=== PATIENT | female | born 1960 | race African-American/Black ===

== ENCOUNTER 2016-04-07 19:40 | Inpatient (IN) ==
[2016-04-07] MEDS ORDERED: 0.9 % Sodium Chloride 1,000 ML IVC SCH (20:15)
[2016-04-07 20:31] LABS: Basophils % 0.1 %; Hematocrit 30.8 % (35.3-44.9); Hemoglobin 10.4 g/dL (11.5-15.4); Immature Granulocytes % 0.6 % (0-4); Lymphocytes # 0.5 K/mcL (0.6-4.6); Lymphocytes % 3.4 %; Mean Corpuscular HGB Conc 33.8 g/dL (31.6-35.5); Mean Corpuscular Hemoglobin 28.9 pg (28.0-33.3); Mean Corpuscular Volume 85.6 fL (83.0-100.0); Mean Platelet Volume 10.1 fL (9.4-12.4); Monocytes # 1.4 K/mcL (0.0-1.3); Monocytes % 8.6 %; Platelet Count 258 K/mcL (140-400); Red Cell Distribution Width 13.3 % (11.5-14.5); Segmented Neutrophils % 87.3 %
[2016-04-07 20:47] LABS: Alanine Aminotransferase 27 Units/L (0-55); Albumin 2.6 g/dL (3.5-5.0); Albumin/Globulin Ratio 0.6 (1.1-2.2); Alkaline Phosphatase 235 Units/L (38-126); Aspartate Amino Transferase 36 Units/L (5-34); BUN/Creatinine Ratio 23 (6-26); Bilirubin,Total 2.6 mg/dL (0.2-1.2); Blood Urea Nitrogen 18 mg/dL (7-20); Calcium 9.6 mg/dL (8.6-10.8); Carbon Dioxide 29 mEq/L (19-29); Chloride 93 mEq/L (98-109); Globulin 4.4 g/dL (2.4-3.5); Glucose 149 mg/dL (70-99); Osmolality,Calculated 279 (280-300); Potassium 3.2 mEq/L (3.5-4.5); Sodium 132 mEq/L (136-145); eGFR For African Americans > 60 (> 60); eGFR For Non-African Americans > 60 (> 60)
[2016-04-07 21:12] LABS: Platelet Estimate Normal (Normal)
[2016-04-07] MEDS ORDERED: Piperacillin/Tazobactam 4.5 GM in D5% in Water (Mini-Bag+) 100 ML IVPB ONE (21:58)
--- NOTE | 2016-04-07 22:53 | Emergency Department Note ---
Disposition Clinical Impression: Altered mental status Qualifiers: Altered mental status type: disorientation Qualified Code(s): R41.0 - Disorientation, unspecified Disposition: Admitted As Inpatient Condition: Good General Adult HPI - General Chief complaint: ED Back Pain/Injury Stated complaint: lower back/left shoulder pain Time Seen by Provider: 04/07/16 19:46 Source: patient, EMS Limitations: no limitations Nursing Notes Reviewed: Yes Vital Signs Reviewed: Yes - History of Present Illness HPI Narrative: 55-year-old female presents with complaints of confusion, she did fall recently on Thursday. Her family says that she is left food on the stove, acting abnormal since Thursday. She is not answer her phone. She was slightly slow to respond on arrival. Her last while was on Thursday. She has no history of diabetes, recent head trauma, anticoagulant use. Pain Scale: 10 - Related Data Home Medications Medication Instructions Recorded Confirmed Pantoprazole Sodium [Protonix] 40 mg PO BID 03/15/15 10/24/15 Tizanidine HCl [Zanaflex] 4 mg PO BID PRN 03/15/15 10/24/15 Alprazolam [Xanax 1 MG Tablet] 1 mg PO BID 09/19/15 10/24/15 Bupropion HCl [Wellbutrin Xl] 300 mg PO DAILY 09/19/15 10/24/15 Carvedilol [Coreg] 25 mg PO BID 09/19/15 10/24/15 Duloxetine HCl [Cymbalta] 30 mg PO DAILY 09/19/15 10/24/15 Meloxicam 15 mg PO DAILY 09/19/15 10/24/15 SUMAtriptan Succinate [Imitrex] 100 mg PO PRN PRN 09/19/15 10/24/15 Amlodipine Besylate 10 mg PO DAILY 10/09/15 10/24/15 Fluticasone Propionate Nasal 1 spray NS DAILY 10/09/15 10/24/15 [Flonase] HYDROcodone/Acet 5/325 mg [[place] 1 tab PO Q6H PRN 10/09/15 10/24/15 5-325 mg] Hydrochlorothiazide 25 mg PO DAILY 10/09/15 10/24/15 Lactulose 15 ml PO BID 10/09/15 10/24/15 Losartan Potassium [Cozaar] 50 mg PO DAILY 10/09/15 10/24/15 Previous Rx's Medication Instructions Recorded Ergocalciferol (VITAMIN D2) 50,000 unit PO QWEEK #12 capsule 03/19/15 [Vitamin D2 (50,000 UNIT)] Cyanocobalamin (B-12) [Vitamin B12] 1,000 mcg PO DAILY #90 tablet 10/25/15 Cholecalciferol (Vitamin D3) 1,000 unit PO DAILY #90 capsule 01/01/16 [Vitamin D] HYDROcodone/Acet 5/325 mg [[place] 1 tab PO Q6HR PRN #10 tablet 04/04/16 5-325 mg] Allergies Allergy/AdvReac Type Severity Reaction Status Date / Time Sulfa (Sulfonamide Allergy Rash Verified 03/15/15 13:45 Antibiotics) All systems ED: reviewed and negative except as stated. Past Medical History - Past Medical History Medical history: Reports: arthritis, GERD, hypertension, other Surgical history: Reports: hysterectomy, orthopedic, other Psychiatric history: Reports: no psych history - Social History Smoking Status: Never smoker Smokeless Tobacco Status: No Alcohol use: Reports: none Drug use: Reports: none Physical Exam Confused but alert to person and place, GCS 15 [place] warm and dry TMs clear bilaterally, extraocular muscle movements are normal, pupils equal and reactive to light Trachea midline Cardiovascular exam is without murmur, rub, gallop Pulmonary exam is good inspiratory effort, no rales, no rhonchi, no wheezing Abdominal exam is soft, nontender, no peritonitis Back is without CVA tenderness Extremities are well perfused, no cyanosis, clubbing, edema When asked to lift her left arm she has right arm drift. reflexes 5/5, sensation normal in all extremities. - General Limitations: no limitations General appearance: alert, in no apparent distress Course Vital Signs Temperature 98.6 F 04/07/16 19:47 Pulse Rate 108 04/07/16 19:47 Respiratory Rate 18 04/07/16 19:47 Blood Pressure 119/71 04/07/16 19:47 O2 Sat by Pulse Oximetry 95 04/07/16 19:47 Temperature 98.6 F 04/07/16 19:47 Pulse Rate 105 04/07/16 21:11 Respiratory Rate 18 04/07/16 21:11 Blood Pressure 132/75 04/07/16 21:11 O2 Sat by Pulse Oximetry 95 04/07/16 21:11 Oxygen Delivery Oxygen Delivery Room Air Medical Decision Making - MDM Narrative Medical decision making narrative: Female patient with confusion. Given the left arm deficit is unclear if this is from trauma versus subacute infarct. She has no objective findings a physical examination Gen. on drift. I do feel like she is investigated for traumatic injuries versus acute CVA versus metabolic versus infectious cause of her confusion. CT imaging shows no acute finding. Urinalysis is pending. Given her leukocytosis as well as tachycardia I would empirically start antibiotics at this time with a source as suspect in the urine given its dehydrated objective appearance. IV fluids will be obtained. I did order advanced angiographic imaging of her brain to rule out acute infarct and to identify early perfusion deficits. Additionally given her fall obtain angiography of her neck to rule out carotid injury. She has no evidence of acute traumatic injuries. Her CT brain is without acute findings. Pancultures are sent. She will be admitted to the hospitalist team. - Medical Records Medical records reviewed: Yes I reviewed the patient's medical records. - Lab Data Lab results reviewed: Yes I reviewed the patient's lab results. Result diagrams: 04/07/16 20:16 04/07/16 20:16 Lab Results 04/07/16 04/07/16 04/07/16 Range/Units 20:16 20:16 20:16 WBC 16.0 H (4.3-11.1) K/mcL RBC 3.60 L (3.82-4.97) M/mcL Hgb 10.4 L (11.5-15.4) g/dL Hct 30.8 L (35.3-44.9) % MCV 85.6 (83.0-100.0) fL MCH 28.9 (28.0-33.3) pg MCHC 33.8 (31.6-35.5) g/dL RDW 13.3 (11.5-14.5) % Plt Count 258 (140-400) K/mcL MPV 10.1 (9.4-12.4) fL Immature Gran % 0.6 (0-4) % Seg Neutrophils % 87.3 % Lymphocytes % 3.4 % Monocytes % 8.6 % Eosinophils % 0.0 % Basophils % 0.1 % Neutrophils # 14.0 H (1.6-8.9) K/mcL Lymphocytes # 0.5 L (0.6-4.6) K/mcL Monocytes # 1.4 H (0.0-1.3) K/mcL Eosinophils # 0.0 (0.0-0.6) K/mcL Basophils # 0.0 (0.0-0.2) K/mcL Platelet Estimate Normal (Normal) Sodium 132 L (136-145) mEq/L Potassium 3.2 L (3.5-4.5) mEq/L Chloride 93 L (98-109) mEq/L Carbon Dioxide 29 (19-29) mEq/L BUN 18 (7-20) mg/dL Creatinine 0.78 (0.57-1.11) mg/dL Est GFR ( Amer) > 60 (> 60) Est GFR (Non-Af Amer) > 60 (> 60) BUN/Creatinine Ratio 23 (6-26) Glucose 149 H (70-99) mg/dL Calculated Osmolality 279 L (280-300) Lactic Acid 1.1 (0.5-2.2) mmol/L Calcium 9.6 (8.6-10.8) mg/dL Total Bilirubin 2.6 H (0.2-1.2) mg/dL AST 36 H (5-34) Units/L ALT 27 (0-55) Units/L Alkaline Phosphatase 235 H (38-126) Units/L Serum Total Protein 7.0 (6.0-8.3) g/dL Albumin 2.6 L (3.5-5.0) g/dL Globulin 4.4 H (2.4-3.5) g/dL Albumin/Globulin Ratio 0.6 L (1.1-2.2) 04/07/16 Range/Units 21:15 WBC (4.3-11.1) K/mcL RBC (3.82-4.97) M/mcL Hgb (11.5-15.4) g/dL Hct (35.3-44.9) % MCV (83.0-100.0) fL MCH (28.0-33.3) pg MCHC (31.6-35.5) g/dL RDW (11.5-14.5) % Plt Count (140-400) K/mcL MPV (9.4-12.4) fL Immature Gran % (0-4) % Seg Neutrophils % % Lymphocytes % % Monocytes % % Eosinophils % % Basophils % % Neutrophils # (1.6-8.9) K/mcL Lymphocytes # (0.6-4.6) K/mcL Monocytes # (0.0-1.3) K/mcL Eosinophils # (0.0-0.6) K/mcL Basophils # (0.0-0.2) K/mcL Platelet Estimate (Normal) Sodium (136-145) mEq/L Potassium (3.5-4.5) mEq/L Chloride (98-109) mEq/L Carbon Dioxide (19-29) mEq/L BUN (7-20) mg/dL Creatinine (0.57-1.11) mg/dL Est GFR ( Amer) (> 60) Est GFR (Non-Af Amer) (> 60) BUN/Creatinine Ratio (6-26) Glucose (70-99) mg/dL Calculated Osmolality (280-300) Lactic Acid 1.1 (0.5-2.2) mmol/L Calcium (8.6-10.8) mg/dL Total Bilirubin (0.2-1.2) mg/dL AST (5-34) Units/L ALT (0-55) Units/L Alkaline Phosphatase (38-126) Units/L Serum Total Protein (6.0-8.3) g/dL Albumin (3.5-5.0) g/dL Globulin (2.4-3.5) g/dL Albumin/Globulin Ratio (1.1-2.2) Critical Care Time Critical Care Time: Yes Attestation: I spent greater than 31 minutes actively resuscitating and providing care to this daily L patient with high potential for life-threatening deterioration suffering from neurologic impairment in the setting of trauma. Critical care time was excluding billable procedures
[2016-04-07 22:59] LABS: Bilirubin,Urine Moderate (Negative); Blood,Urine Trace (Negative); Clarity,Urine Clear (Clear); Color,Urine Orange (Yellow); Glucose,Urine (UA) 250 mg/dL (Normal); Ketones,Urine Trace mg/dL (Negative); Leukocyte Esterase,Urine Small (Negative); Nitrite,Urine Negative (Negative); Protein,Urine 100 mg/dL (Neg-Trace); Specific Gravity,Urine > 1.030 (1.010-1.025); Urobilinogen,Urine Normal (Normal)
[2016-04-07 23:02] LABS: Hyaline Casts,Urine None Seen per lpf (None-Few); Squamous Epithelial Cell,Urine Many per lpf (None-Few)
[2016-04-07 23:06] LABS: Amphetamine Screen,Urine Negative ng/mL (Cutoff=1000); Barbiturate Screen,Urine Negative ng/mL (Cutoff=200); Benzodiazepines Screen,Urine Positive ng/mL (Cutoff=200); Cannabinoid Screen,Urine Negative ng/mL (Cutoff = 50); Cocaine Screen,Urine Negative ng/mL (Cutoff= 300); Opiate Screen,Urine Positive ng/mL (Cutoff=300); Phencyclidine Screen,Urine Negative ng/mL (Cutoff=25)
[2016-04-07 23:14] LABS: Amorphous Sediment,Urine Few (Few); Bacteria,Urine Few per hpf (None-Few); RBC,Urine 0-3 per hpf (0-3)
--- NOTE | 2016-04-08 03:24 | Internal Med History&Physical ---
Date of Encounter: 04/08/16 Time of Encounter: 03:20 Assessment and Plan (1) Acute encephalopathy Current visit: Yes Status: Acute Unclear etiology at this point, currently working up metabolic versus infectious cause Also consider polypharmacy, will discontinue medications that may be sedating Obtain ammonia, TSH, B12, folate levels Urine tox screen was positive for opiates and benzodiazepines, both of which she is prescribed Head CT was negative, however neck CTA did not demonstrate mild narrowing of both internal carotids (2) UTI (urinary tract infection) Current visit: Yes Status: Acute Patient denies ever being diagnosed with UTI in the past This could certainly contribute to her recent confusion We will treat empirically with IV Rocephin Blood and urine cultures has been collected, await sensitivities prior to de- escalation Qualifiers: Qualified Code(s): N39.0 - Urinary tract infection, site not specified (3) Weakness of left upper extremity Current visit: Yes Status: Acute Initial head CT negative, will follow up with MRI Obtain bilateral carotid duplex as above Consult protective services social worker, physical and occupational therapy as patient lives alone (4) Recurrent falls Current visit: Yes Status: Chronic Currently working up metabolic versus infectious cause as above (5) Hypokalemia Current visit: Yes Status: Acute Possibly due to poor oral intake recently Patient was given 40 mEq in the ED Repeat BMP in the a.m. (6) DVT prophylaxis Current visit: Yes Status: Acute Heparin 5000 units BID Internal Medicine - H&P: HPI Chief complaint: confusion, fall Admitted From: Home Plans for Post Hospital Care: Home History of present illness: Ms. Menon is a 55 year old female presents from home after an episode of confusion and possible urinary tract infection. Patient is alone at this point , but did present initially with her brother. Upon reviewing the chart, it was noted that the brother stated patient was acting confused and answering questions inappropriately this past Thursday. Patient claims that she has been off her medications for several days due to "not feeling well" and had generalized pain causing her to stay stationary. She also admits to a history of frequent falls but attributes them to being "clumsy". She notes that 2 weeks ago she did fall backwards while putting her pants onto fast and hit her head on the couch. She denies any syncope, fractures, or osteoporosis, but does report some episodes of dizziness. Patient states she has never been worked up for her falls in the past. She also denies ever having been diagnosed with a urinary tract infection, and early has no complaints of urinary symptoms. She does admit to having a poor appetite, again due to her not wanting to get up and move. She denies any chest pain, shortness of breath , fevers. Past Med Surg Social Fam HX - Past Medical History Medical history: arthritis, GERD, hypertension, other Psychiatric history: anxiety, depression - Past Surgical History Surgical History: hysterectomy, orthopedic, other - Social History Smoking Status: Never smoker Smokeless Tobacco Status: No Alcohol use: none Drug use: none - Family History Mother Living Status: Still Living Hx Family Cancer: Yes (breast cancer) Father Age: 63 Living Status: Hx Family Cardiac Disorders: Yes Internal Medicine - H&P: Meds Pantoprazole Sodium [Protonix] 40 mg PO BID 03/15/15 [History] Tizanidine HCl [Zanaflex] 4 mg PO BID PRN 03/15/15 [History] Alprazolam [Xanax 1 MG Tablet] 1 mg PO BID 09/19/15 [History] Bupropion HCl [Wellbutrin Xl] 300 mg PO DAILY 09/19/15 [History] Carvedilol [Coreg] 25 mg PO BID 09/19/15 [History] Duloxetine HCl [Cymbalta] 30 mg PO DAILY 09/19/15 [History] Meloxicam 15 mg PO DAILY 09/19/15 [History] SUMAtriptan Succinate [Imitrex] 100 mg PO PRN PRN 09/19/15 [History] Amlodipine Besylate 10 mg PO DAILY 10/09/15 [History] Fluticasone Propionate Nasal [Flonase] 1 spray NS DAILY 10/09/15 [History] Hydrochlorothiazide 25 mg PO DAILY 10/09/15 [History] Lactulose 15 ml PO BID 10/09/15 [History] Losartan Potassium [Cozaar] 50 mg PO DAILY 10/09/15 [History] Cyanocobalamin (B-12) [Vitamin B12] 1,000 mcg PO DAILY #90 tablet 10/25/15 [Rx] Cholecalciferol (Vitamin D3) [Vitamin D] 1,000 unit PO DAILY #90 capsule [Rx] HYDROcodone/Acet 5/325 mg [[place] 5-325 mg] 1 tab PO Q6HR PRN #10 tablet [Rx] Allergies Sulfa (Sulfonamide Antibiotics) Allergy (Verified 03/15/15 13:45) Rash All Systems PM: A 10-system review of systems was performed and is negative for pertinent findings except as documented above in the HPI. - Constitutional Constitutional: falls, lethargy, no chills, no fever(s), no night sweats - EENT Eyes: no change in vision, no discharge, no pain, no photophobia Ears: no ear discharge, no ear pain, no tinnitus Nose, mouth and throat: no dysphagia, no nasal discharge, no neck pain, no sore throat - Cardiovascular Cardiovascular ROS IM: lightheadedness, no chest pain, no diaphoresis, no dyspnea, no palpitations, no syncope - Respiratory Respiratory: no cough, no dyspnea, no wheezing, no excessive phlegm production - Gastrointestinal Gastrointestinal: no abdominal pain, no diarrhea, no hematemesis, no hematochezia, no melena, no nausea, no vomiting - Genitourinary Genitourinary: no change in urinary stream, no dysuria, no flank pain, no hematuria - Musculoskeletal Musculoskeletal ROS IM: back pain, no numbness, no tingling - Integumentary Integumentary IM: no rash, no unusual bruising - Neurological Neurological ROS: confusion, frequent falls, no convulsions, no focal weakness, no numbness, no tingling, no tremor(s) - Hematologic/Lymphatic Hematologic/Lymphatic: no easy bruising - Constitutional Vitals: Temp Pulse Resp BP Pulse Ox 98.6 F 106 17 109/69 100 04/07/16 23:27 04/07/16 23:27 04/07/16 23:27 04/07/16 23:27 04/07/16 23:27 General appearance: Present: cooperative, pleasant, no acute distress, obese, answers questions appropriately - Head Head exam: Present: atraumatic, normocephalic - Eye Eye exam: Present: PERRL, conjuntiva pink, sclera anicteric - Neck Neck exam general surgery: Present: supple, trachea midline. Absent: lymphadenopathy - Respiratory Respiratory exam: Present: CTAB. Absent: accessory muscle use, rales, rhonchi, wheezes - Cardiovascular Cardiovascular exam: Present: +S1, +S2, tachycardia. Absent: diastolic murmur, gallop, rubs, systolic murmur - GI/Abdominal GI/Abdominal exam: Present: normal bowel sounds, soft, no peritoneal signs. Absent: distended, tenderness - Extremities Exam Extremities exam: Present: tenderness (at the right hip), warm, radial pulses palpable and symetrical. Absent: calf tenderness, cyanotic, pedal edema - Neurological Exam Neurological exam: Present: alert, CN II-XII intact, no focal deficits. Absent : facial droop, speech deficit - Skin Skin exam: Present: dry, intact Internal Med - H&P Results - Labs CBC & Chem 7: 04/07/16 20:16 04/07/16 20:16
[2016-04-08] MEDS ORDERED: Ondansetron ODT 4 MG TAB.RAPDIS SL PRN (03:29)
[2016-04-08] MEDS ORDERED: Naloxone 0.4 MG/ML INJ IVP PRN (03:29)
[2016-04-08] MEDS ORDERED: SUMAtriptan succinate 50 MG TABLET PO PRN (03:34)
[2016-04-08] MEDS ORDERED: tiZANidine 4 MG TABLET PO PRN (03:34)
[2016-04-08] MEDS ORDERED: 0.9 % Sodium Chloride 1,000 ML IVC ONE (03:35)
--- NOTE | 2016-04-08 04:12 | Event Note ---
Date of Encounter: 04/08/16 Time of Encounter: 04:10 Patient seen and examined with medical services assistant. Patient presents with generalized weakness and recurrent falls and confusion. Patient has a UTI is dehydrated. She will be started on ceftriaxone and fluid resuscitation. She is on multiple blood pressure medications and these will be discontinued for now. She is also on [place] benzodiazepine and muscle relaxants and these will be discontinued. There is a slight drift of the left upper extremity and an MRI of the brain will be performed to rule out stroke. Patient is currently alert oriented times 3 during my interview. Physical therapy occupational therapy and clinical social work aide to see the patient. Inpatient admission
[2016-04-08] MEDS: *HR* Heparin 5,000 UNIT/ML VIAL SQ SCH ×2 (05:41→18:42)
[2016-04-08] MEDS: *HR* HYDROcodone/Acet 5/325 mg TABLET PO PRN ×3 (05:42→23:41)
[2016-04-08] MEDS: 0.9 % Sodium Chloride 1,000 ML IVC SCH (06:54)
[2016-04-08 07:02] LABS: Hematocrit 26.9 % (35.3-44.9); Mean Corpuscular HGB Conc 33.5 g/dL (31.6-35.5); Mean Corpuscular Hemoglobin 29.1 pg (28.0-33.3); Mean Corpuscular Volume 87.1 fL (83.0-100.0); Mean Platelet Volume 10.3 fL (9.4-12.4); Platelet Count 228 K/mcL (140-400); Red Blood Count 3.09 M/mcL (3.82-4.97); Red Cell Distribution Width 13.8 % (11.5-14.5)
[2016-04-08 07:19] LABS: BUN/Creatinine Ratio 28 (6-26); Blood Urea Nitrogen 22 mg/dL (7-20); Calcium 8.7 mg/dL (8.6-10.8); Carbon Dioxide 24 mEq/L (19-29); Chloride 100 mEq/L (98-109); Glucose 127 mg/dL (70-99); Magnesium 1.7 mg/dL (1.6-2.6); Osmolality,Calculated 281 (280-300); Phosphorous 2.4 mg/dL (2.3-4.7); Potassium 3.2 mEq/L (3.5-4.5); Sodium 133 mEq/L (136-145); eGFR For African Americans > 60 (> 60); eGFR For Non-African Americans > 60 (> 60)
[2016-04-08 07:51] LABS: Lymphocytes # 1.8 K/mcL (0.6-4.6); Monocytes # 0.6 K/mcL (0.0-1.3); Neutrophils # 12.4 K/mcL (1.6-8.9); Platelet Estimate Normal (Normal)
[2016-04-08 07:54] LABS: Folate 4.7 ng/mL (7.0-31.4)
[2016-04-08 07:56] LABS: Vitamin B12 > 2000 pg/mL (213-816)
[2016-04-08] MEDS ORDERED: amLODIPine 5 MG TABLET PO SCH (09:00)
[2016-04-08] MEDS ORDERED: BuPROPion XL (24 HR) 150 MG TABLET PO SCH (09:00)
[2016-04-08] MEDS ORDERED: ALPRAZolam 1 MG TABLET PO SCH (09:00)
[2016-04-08] MEDS ORDERED: Potassium Chloride Elixir 20 MEQ/15 ML UDC PO ONE (15:41)
--- NOTE | 2016-04-08 15:58 | Event Note ---
Date of Encounter: 04/08/16 Time of Encounter: 15:54 55-year-old female with history of hypertension, anxiety and depression, who lives alone, is admitted with acute confusion and frequent falls. Workup shows leukocytosis, low serum potassium, low serum folate level, urinalysis suggestive of UTI and 2 out of 2 initial blood cultures growing staph aureus. Patient seen and examined. Reports no chest pain, shortness of breath, focal weakness but does report generalized fatigue. Awake, alert and oriented 3. Chest-S1, S2 heard. Lungs are clear to auscultation. Abdomen-soft, nontender, nondistended. WAITER/WAITRESS TOURIST CLASS-cranial nerves intact, no focal deficit Acute encephalopathy-likely related to underlying infection and dehydration. Currently at baseline mental status. Serum TSH and vitamin B12 noted to be normal. Serum folate noted to be low, will start on oral folate supplements. UTI-improving leukocytosis. follow-up urine culture. Continue IV Rocephin. Gram-positive bacteremia-start IV vancomycin and repeat blood cultures in a.m. Uncertain source of infection. Left upper extremity weakness, falls-likely related to generalized weakness due to underlying UTI. CT head and MRI brain reviewed, show no evidence of acute stroke/bleed. Physical and occupational therapy evaluation noted-recommend placement in extended care facility. However, patient is not agreeable at this time and would like to be discharged home with home health services. student financial services counselor on board.
[2016-04-08] MEDS: Folic Acid 1 MG TABLET PO SCH (17:38)
--- NOTE | 2016-04-08 18:33 | Electrocardiograph Report ---
[address] [address] Test Date: 2016-04-08 Pat Name: Christin Menon Department: 114 Room: [facility] Gender: F Speech Pathology Assistant: : 1960 Requested By: Barbara Regan Order Number: [id number] Reading MD: Nallely Santos Measurements Intervals [place] Rate: 101 P: 67 [place]: 151 QRS: 17 QRSD: 86 T: 54 QT: 337 QTc: 395 Interpretive Statements SINUS TACHYCARDIA POSSIBLE LEFT ATRIAL ENLARGEMENT NONSPECIFIC T-WAVE ABNORMALITY ABNORMAL RHYTHM ECG Electronically Signed On 04-08-2016 18:31:30 EST by Nallely Santos
[2016-04-08] MEDS: Vancomycin 1,500 MG in D5% in Water 250 ML IVPB SCH (18:42)
[2016-04-08] MEDS: Sennosides/Docusate Sodium TABLET PO SCH (20:49)
[2016-04-09] MEDS: 0.9 % Sodium Chloride 1,000 ML IVC SCH (04:21)
[2016-04-09] MEDS: Vancomycin 1,500 MG in D5% in Water 250 ML IVPB SCH ×2 (05:43→16:45)
[2016-04-09] MEDS: *HR* HYDROcodone/Acet 5/325 mg TABLET PO PRN ×3 (05:45→18:25)
[2016-04-09 06:30] LABS: Hematocrit 28.5 % (35.3-44.9); Hemoglobin 9.3 g/dL (11.5-15.4); Mean Corpuscular HGB Conc 32.6 g/dL (31.6-35.5); Mean Corpuscular Hemoglobin 28.4 pg (28.0-33.3); Mean Corpuscular Volume 87.2 fL (83.0-100.0); Mean Platelet Volume 10.3 fL (9.4-12.4); Platelet Count 239 K/mcL (140-400); Red Blood Count 3.27 M/mcL (3.82-4.97); Red Cell Distribution Width 14.5 % (11.5-14.5)
[2016-04-09 06:43] LABS: BUN/Creatinine Ratio 24 (6-26); Blood Urea Nitrogen 17 mg/dL (7-20); Calcium 8.9 mg/dL (8.6-10.8); Carbon Dioxide 24 mEq/L (19-29); Chloride 98 mEq/L (98-109); Glucose 132 mg/dL (70-99); Osmolality,Calculated 273 (280-300); Potassium 3.5 mEq/L (3.5-4.5); Sodium 130 mEq/L (136-145); eGFR For African Americans > 60 (> 60); eGFR For Non-African Americans > 60 (> 60)
[2016-04-09] MEDS: *HR* Heparin 5,000 UNIT/ML VIAL SQ SCH ×2 (06:51→18:25)
[2016-04-09] MEDS: Folic Acid 1 MG TABLET PO SCH (07:56)
[2016-04-09] MEDS: Sennosides/Docusate Sodium TABLET PO SCH ×2 (07:57→21:03)
[2016-04-09 08:30] LABS: Lymphocytes # 1.3 K/mcL (0.6-4.6); Monocytes # 0.3 K/mcL (0.0-1.3); Neutrophils # 14.7 K/mcL (1.6-8.9)
[2016-04-09 08:31] LABS: Anisocytosis 1+ (Not Present); Macrocytosis Present (Not Present); Platelet Estimate Normal (Normal)
--- NOTE | 2016-04-09 15:38 | Internal Med Progress Note ---
Date of Encounter: 04/09/16 Time of Encounter: 15:36 - Assessment and plan (1) Acute encephalopathy Current Visit: Yes Status: Acute Assessment and plan: resolved. Currently at baseline mental status. Likely related to underlying dehydration, poor oral intake, depression and use of multiple narcotics/ sedatives/antidepressants. PT/OT evaluation noted, recommend placement in ECF, to which patient is currently agreeable. fitness services manager om board, working on the same. (2) UTI (urinary tract infection) Current Visit: Yes Status: Acute Assessment and plan: Urine culture grows no significant bacteria; continue IV Rocephin to complete a 3-day course; Blood cultures 2/2 grow Staph-like GPC; continue IV Vancomycin and f/up final and repeat cultures; unknown source of bacteremia at this time, wonder if this is contamination; patient does not appear toxic/septic. Qualifiers: Urinary tract infection type: site unspecified Hematuria presence: without hematuria Qualified Code(s): N39.0 - Urinary tract infection, site not specified (3) Weakness of left upper extremity Current Visit: Yes Status: Resolved Assessment and plan: Nonspecific complaint at presentation; MRI brain showed no e/o- acute stroke/ bleed. Carotid Doppler preliminary report shows 60-79% stenosis in left proximal ICA; needs outpatient vascular surgery f/up; (4) Essential hypertension Current Visit: Yes Status: Chronic (5) Anxiety Current Visit: Yes Status: Chronic Assessment and plan: resume home dose of benzodiazepines; (6) Depression Current Visit: Yes Status: Chronic Qualifiers: Depression Type: unspecified Qualified Code(s): F32.9 - Major depressive disorder, single episode, unspecified (7) Recurrent falls Current Visit: Yes Status: Chronic (8) Anemia Current Visit: Yes Status: Chronic Qualifiers: Anemia type: B12 deficiency Vitamin B12 deficiency anemia type: intrinsic factor deficiency Qualified Code(s): D51.0 - Vitamin B12 deficiency anemia due to intrinsic factor deficiency (9) B12 deficiency Current Visit: Yes Status: Chronic Assessment and plan: Serum Vit B12 level noted to be high; hold monthly B12 injection; serum folate noted to be low and started on PO Folate supplements; (10) Iron deficiency Current Visit: Yes Status: Chronic (11) Vitamin D deficiency Current Visit: Yes Status: Chronic Assessment and plan: continue Vitamin D PO supplements; - Subjective Interval history: Reports back pain, anxiety and depression; has poor appetite due to these; no chest pain, dyspnea, palpitations, diarrhea. - Constitutional Vitals: Temp Pulse Resp BP Pulse Ox 98.8 F 108 16 116/67 95 04/09/16 06:43 04/09/16 12:06 04/09/16 06:43 04/09/16 12:06 04/09/16 06:43 General appearance: Present: mild distress, A&O X 3, obese, answers questions appropriately - Respiratory Respiratory exam: Present: CTAB. Absent: accessory muscle use, rales, rhonchi, wheezes - Cardiovascular Cardiovascular exam: Present: RRR, +S1, +S2. Absent: diastolic murmur, gallop, rubs, systolic murmur - GI/Abdominal GI/Abdominal exam: Present: normal bowel sounds, soft (Obese, nontender), no peritoneal signs. Absent: distended, tenderness Internal Medicine: Result - Labs CBC & Chem 7: 04/09/16 06:21 04/09/16 06:21 Labs: Short CBC 04/09/16 Range/Units 06:21 WBC 16.3 H (4.3-11.1) K/mcL Hgb 9.3 L (11.5-15.4) g/dL Hct 28.5 L (35.3-44.9) % Plt Count 239 (140-400) K/mcL Neutrophils # 14.7 H (1.6-8.9) K/mcL BMP 04/09/16 06:21 Sodium 130 L Potassium 3.5 Chloride 98 Carbon Dioxide 24 BUN 17 Creatinine 0.71 Glucose 132 H Calcium 8.9 Consult Discharge Plan - Plan Referrals: Marie Patel MD [Partnered Physician] - 04/15/16 10:00 am Swapnil Philippe DO [Primary Care Provider] - 07/07/16 2:00 pm Isidro Fairbanks DO [Partnered Physician] - 04/14/16 10:20 am Nancy Frank MD [Partnered Physician] - 04/10/16 10:15 am [facility] [Non-Partnered Physician] -
[2016-04-09 16:15] LABS: Acinetobacter baumannii by PCR Not Detected (Not Detect); Candida albicans by PCR Not Detected (Not Detect); Candida glabrata by PCR Not Detected (Not Detect); Candida krusei by PCR Not Detected (Not Detect); Candida parapsilosis by PCR Not Detected (Not Detect); Candida tropicalis by PCR Not Detected (Not Detect); Enterococcus by PCR Not Detected (Not Detect); Escherichia coli by PCR Not Detected (Not Detect); Klebsiella oxytoca by PCR Not Detected (Not Detect); Klebsiella pneumoniae by PCR Not Detected (Not Detect); Pseudomonas aeruginosa by PCR Not Detected (Not Detect); Serratia marcescens by PCR Not Detected (Not Detect); Staphylococcus aureus by PCR ***DETECTED*** (Not Detect); Streptococcus agalactiae(B)PCR Not Detected (Not Detect); Streptococcus by PCR Not Detected (Not Detect); Streptococcus pneumoniae PCR Not Detected (Not Detect); Streptococcus pyogenes (A) PCR Not Detected (Not Detect); blaKPC Carbapenem-Resist Gene Not Detected (Not Detect); mecA Methicillin-Resist Gene Not Detected (Not Detect); vanA/B Vancomycin-Resist Genes Not Detected (Not Detect)
[2016-04-09] MEDS ORDERED: *HR* Morphine 2 MG/ML SYRINGE IVP PRN (18:46)
--- NOTE | 2016-04-09 18:59 | Carotid Imaging Report ---
Carotid Duplex Patient Name:Christin Menon Order Number:[id number] Procedure Date:04/08/2016 Date:1960ge:55 yrs Gender:Female Rt.BP:117 / 70 mmHgHeart Rate: Location:[facility] Room #: 3CA34 Canvas Cutter:Mitzy Bhat RDCS Referring MD:Justo Venegas DO global position system technician:Swapnil Philippe DO Reading MD:Ulises Silvestre MD Primary Indications:Confusion, falls, stenosis on CT Risk Factors Yes/No Hypertension Yes Impressions: The right carotid artery has minimal plaque throughout. The left internal carotid artery has a 60-79% stenosis. Recommendations: Risk factor reduction. Further evaluation recommended if clinically indicated. Follow-up carotid duplex in 6 months. Test completed on 04/08/2016 at 7:58:00 pm. Findings Carotid Duplex: Right: The right proximal common carotid artery has a PSV of 167 cm/s and a EDV of 28 cm/s. The right mid common carotid artery has a PSV of 162 cm/s and a EDV of 21 cm/s. The right distal common carotid artery has a PSV of 144 cm/s and a EDV of 23 cm/s. There is nonstenotic plaque in the right bifurcation with a PSV of 126 cm/s and a EDV of 25 cm/s. There is irregular heterogeneous plaque. There is nonstenotic plaque in the right proximal internal carotid artery with a PSV of 117 cm/s and a EDV of 22 cm/s. There is irregular heterogeneous plaque. The right mid internal carotid artery has a PSV of 90 cm/s and a EDV of 32 cm/s. The right distal internal carotid artery has a PSV of 86 cm/s and a EDV of 30 cm/s. The right eca has a PSV of 190 cm/s and a EDV of 13 cm/s. The right vertebral artery has a PSV of 95 cm/s and a EDV of 26 cm/s. There is antegrade spectral Doppler flow patterns. The right vertebral artery was not well visualized. Left: The left proximal common carotid artery has a PSV of 154 cm/s and a EDV of 30 cm/s. The left mid common carotid artery has a PSV of 187 cm/s and a EDV of 37 cm/s. The left distal common carotid artery has a PSV of 145 cm/s and a EDV of 33 cm/s. There is nonstenotic plaque in the left bifurcation with a PSV of 114 cm/s and a EDV of 17 cm/s. There is irregular heterogeneous plaque. There is 60-79% stenosis in the left proximal internal carotid artery with a PSV of 200 cm/s and a EDV of 36 cm/s. There is irregular homogeneous plaque. The left mid internal carotid artery has a PSV of 115 cm/s and a EDV of 30 cm/s. The left distal internal carotid artery has a PSV of 115 cm/s and a EDV of 47 cm/s. The left eca has a PSV of 173 cm/s and a EDV of 15 cm/s. The left vertebral artery has a PSV of 67 cm/s and a EDV of 27 cm/s. There is antegrade spectral Doppler flow patterns. Prior Study: No prior study available for comparison. Carotid Results Right PSV EDV Assessment Proximal CCA 167 28 Mid CCA 162 21 Distal CCA 144 23 Bifurcation 126 25 Non Stenotic Plaque Proximal ICA 117 22 Non Stenotic Plaque Mid ICA 90 32 Distal ICA 86 30 ECA 190 13 Vertebral Artery 95 26 Not Well Visualized Left PSV EDV Assessment Proximal CCA 154 30 Mid CCA 187 37 Distal CCA 145 33 Bifurcation 114 17 Non Stenotic Plaque Proximal ICA 200 36 60-79% stenosis Mid ICA 115 30 Distal ICA 115 47 ECA 173 15 Vertebral Artery 67 27 Antegrade Flow Ratio's Right ICA/CCA Ratio: 0.72 ICA/CCA Values: 117/162 Left ICA/CCA Ratio: 1.07 ICA/CCA Values: 200/187 Updated by Ulises Silvestre MD on 04/09/2016 6:53:35 PM electronically signed on 04/09/2016 6:53:57 PM with status of Final
[2016-04-09] MEDS: ALPRAZolam 1 MG TABLET PO PRN (21:04)
[2016-04-09] MEDS: Acetaminophen 325 MG TABLET PO PRN (21:04)
[2016-04-10] MEDS: *HR* HYDROcodone/Acet 5/325 mg TABLET PO PRN ×4 (01:43→20:28)
[2016-04-10 04:40] LABS: Basophils % 0.2 %; Eosinophils % 0.2 %; Hemoglobin 9.5 g/dL (11.5-15.4); Immature Granulocytes % 2.9 % (0-4); Lymphocytes # 1.2 K/mcL (0.6-4.6); Lymphocytes % 6.4 %; Mean Corpuscular HGB Conc 32.8 g/dL (31.6-35.5); Mean Corpuscular Volume 85.5 fL (83.0-100.0); Mean Platelet Volume 10.4 fL (9.4-12.4); Monocytes # 1.7 K/mcL (0.0-1.3); Monocytes % 9.5 %; Neutrophils # 14.6 K/mcL (1.6-8.9); Platelet Count 291 K/mcL (140-400); Red Blood Count 3.39 M/mcL (3.82-4.97); Red Cell Distribution Width 14.4 % (11.5-14.5); Segmented Neutrophils % 80.8 %
[2016-04-10 05:02] LABS: Vancomycin,Trough 10.2 mcg/mL (10-20)
[2016-04-10] MEDS: Vancomycin 1,500 MG in D5% in Water 250 ML IVPB SCH (05:07)
[2016-04-10] MEDS: *HR* Heparin 5,000 UNIT/ML VIAL SQ SCH ×2 (06:06→20:27)
[2016-04-10] MEDS: Acetaminophen 325 MG TABLET PO PRN (06:06)
[2016-04-10] MEDS ORDERED: Aminoglycoside Consult 1 EACH MC ONE (08:54)
[2016-04-10] MEDS: Sennosides/Docusate Sodium TABLET PO SCH ×2 (08:55→20:27)
[2016-04-10] MEDS: Cyanocobalamin (B-12) 1,000 MCG TABLET PO SCH (08:56)
[2016-04-10] MEDS: Folic Acid 1 MG TABLET PO SCH (08:56)
[2016-04-10] MEDS: Cholecalciferol (D-3) 1,000 UNIT TABLET PO SCH (08:57)
[2016-04-10] MEDS: Fluticasone Propionate Nasal 50 MCG/SPRAY BOTTLE NS SCH (08:57)
[2016-04-10 10:56] LABS: Enterococcus by PCR Not Detected (Not Detect); mecA Methicillin-Resist Gene Not Detected (Not Detect)
[2016-04-10 10:57] LABS: Acinetobacter baumannii by PCR Not Detected (Not Detect); Candida albicans by PCR Not Detected (Not Detect); Candida glabrata by PCR Not Detected (Not Detect); Candida krusei by PCR Not Detected (Not Detect); Candida parapsilosis by PCR Not Detected (Not Detect); Candida tropicalis by PCR Not Detected (Not Detect); Escherichia coli by PCR Not Detected (Not Detect); Klebsiella oxytoca by PCR Not Detected (Not Detect); Klebsiella pneumoniae by PCR Not Detected (Not Detect); Pseudomonas aeruginosa by PCR Not Detected (Not Detect); Serratia marcescens by PCR Not Detected (Not Detect); Staphylococcus aureus by PCR ***DETECTED*** (Not Detect); Streptococcus agalactiae(B)PCR Not Detected (Not Detect); Streptococcus by PCR Not Detected (Not Detect); Streptococcus pneumoniae PCR Not Detected (Not Detect); Streptococcus pyogenes (A) PCR Not Detected (Not Detect)
[2016-04-10] MEDS: ceFAZolin 2,000 MG in D5% in Water 100 ML IVPB SCH ×2 (12:43→21:44)
--- NOTE | 2016-04-10 15:55 | Internal Med Progress Note ---
Date of Encounter: 04/10/16 Time of Encounter: 15:52 - Assessment and plan (1) Pneumonia Current Visit: Yes Status: Acute Assessment and plan: CT abdomen shows incidental finding of right lower lobe pneumonia. Given patient's worsening leukocytosis and clinical status, we will start IV Levaquin. Noted to require 2-3 L/m supplemental oxygen via nasal cannula. Monitor vital signs closely. Serum lactic acid noted to be within normal limits. Qualifiers: Pneumonia type: due to unspecified organism Laterality: right Lung location: lower lobe of lung Qualified Code(s): J18.1 - Lobar pneumonia, unspecified organism (2) Discitis of lumbar region Current Visit: Yes Status: Acute Assessment and plan: Patient continues to have worsening leukocytosis, persistent bacteremia and acute on chronic severe low back pain. CT abdomen/pelvis is suggestive of possible discitis along with prevertebral/retroperitoneal mass with foci of age at the level of L2-3. This is probably the source of patient's bacteremia. Continue IV antibiotics for MSSA bacteremia along with IV Levaquin. Case discussed with spine surgery Dr. Woo, will follow-up for the consult. Recommend to obtain baseline ESR, CRP along with MRI lumbar spine. Further management to be determined after the imaging studies. Patient is at high risk for worsening sepsis and septic shock. Continue to monitor closely. Plan of care discussed over the telephone with patient's daughter, Ysabel, who lives in [place]. (3) Gram-positive bacteremia Current Visit: Yes Status: Acute Assessment and plan: Initial blood cultures from 04/07, 2 out of 2 sets grew MSSA and patient's antibiotics have been changed to IV cefazolin. Repeat blood cultures from , 1 out of 2 sets grows staph-like gram-positive cocci. Will check 2-D echocardiogram for endocarditis. Repeat blood cultures tomorrow. (4) Acute encephalopathy Current Visit: Yes Status: Resolved Assessment and plan: Likely related to underlying bacteremia and infection. Mental status noted to be at baseline with intermittent confusion and lethargy. Supportive care. (5) UTI (urinary tract infection) Current Visit: Yes Status: Ruled-out Assessment and plan: Urine culture does not show significant bacterial growth, likely contamination. Will hold IV Rocephin at this time. CT abdomen/pelvis shows right-sided perinephritic stranding, unclear if this is actually pyelonephritis. Continue to monitor clinically. Qualifiers: Urinary tract infection type: site unspecified Hematuria presence: without hematuria Qualified Code(s): N39.0 - Urinary tract infection, site not specified (6) Essential hypertension Current Visit: Yes Status: Chronic (7) Anxiety Current Visit: Yes Status: Chronic (8) Depression Current Visit: Yes Status: Chronic Qualifiers: Depression Type: unspecified Qualified Code(s): F32.9 - Major depressive disorder, single episode, unspecified (9) Recurrent falls Current Visit: Yes Status: Chronic Assessment and plan: Physical therapy evaluation noted, patient is to be transferred to senior care facility for rehabilitation when medically stable. (10) Anemia Current Visit: Yes Status: Chronic Qualifiers: Anemia type: B12 deficiency Vitamin B12 deficiency anemia type: intrinsic factor deficiency Qualified Code(s): D51.0 - Vitamin B12 deficiency anemia due to intrinsic factor deficiency (11) B12 deficiency Current Visit: Yes Status: Chronic (12) Iron deficiency Current Visit: Yes Status: Chronic (13) Vitamin D deficiency Current Visit: Yes Status: Chronic - Subjective Interval history: Does not feel good; reports feeling sick with excruciating low back pain, worse on moving; not really controlled with IV Morphine and Hydrocodone; - Constitutional Vitals: Temp Pulse Resp BP Pulse Ox 97.7 F 95 18 125/80 100 04/10/16 11:39 04/10/16 11:39 04/10/16 11:39 04/10/16 11:39 04/10/16 11:39 General appearance: Present: mild distress, A&O X 3, obese, answers questions appropriately - Respiratory Respiratory exam: Present: decreased breath sounds (at right base), CTAB. Absent: accessory muscle use, rales, rhonchi, wheezes - Cardiovascular Cardiovascular exam: Present: RRR, +S1, +S2, tachycardia. Absent: diastolic murmur, gallop, rubs, systolic murmur - GI/Abdominal GI/Abdominal exam: Present: normal bowel sounds, soft, no peritoneal signs. Absent: distended, tenderness - Extremities Exam Extremities exam: Present: full ROM, warm, radial pulses palpable and symetrical. Absent: calf tenderness, cyanotic, pedal edema - Back Exam Back exam: Present: tenderness (severe midline tenderness in lower lumbar area ) - Neurological Exam Neurological exam: Present: CN II-XII intact, oriented X3, no focal deficits. Absent: pronater drift, facial droop, speech deficit - Skin Skin exam: Present: dry, intact Internal Medicine: Result - Labs CBC & Chem 7: 04/10/16 04:30 04/09/16 06:21 Labs: Short CBC 04/10/16 Range/Units 04:30 WBC 18.1 H (4.3-11.1) K/mcL Hgb 9.5 L (11.5-15.4) g/dL Hct 29.0 L (35.3-44.9) % Plt Count 291 (140-400) K/mcL Neutrophils # 14.6 H (1.6-8.9) K/mcL Consult Discharge Plan - Plan Referrals: Marie Patel MD [Partnered Physician] - 04/15/16 10:00 am Swapnil Philippe DO [Primary Care Provider] - 07/07/16 2:00 pm Isidro Fairbanks DO [Partnered Physician] - 04/14/16 10:20 am Nancy Frank MD [Partnered Physician] - 04/10/16 10:15 am [facility] [Non-Partnered Physician] -
[2016-04-10] MEDS: *HR* Morphine 2 MG/ML SYRINGE IVP PRN ×2 (18:17→22:05)
[2016-04-10] MEDS: 0.9 % Sodium Chloride 1,000 ML IVC SCH (20:28)
[2016-04-10] MEDS: Levofloxacin 750 MG/150 ML 750 MG/150 ML BAG IVPB SCH (22:16)
[2016-04-11] MEDS: ALPRAZolam 1 MG TABLET PO PRN (04:03)
[2016-04-11] MEDS: 0.9 % Sodium Chloride 1,000 ML IVC SCH ×2 (04:03→12:11)
[2016-04-11] MEDS: ceFAZolin 2,000 MG in D5% in Water 100 ML IVPB SCH ×2 (04:04→12:10)
[2016-04-11 06:48] LABS: Hematocrit 27.4 % (35.3-44.9); Hemoglobin 9.3 g/dL (11.5-15.4); Mean Corpuscular HGB Conc 33.9 g/dL (31.6-35.5); Mean Corpuscular Hemoglobin 28.4 pg (28.0-33.3); Mean Corpuscular Volume 83.5 fL (83.0-100.0); Mean Platelet Volume 10.1 fL (9.4-12.4); Platelet Count 333 K/mcL (140-400); Red Blood Count 3.28 M/mcL (3.82-4.97); Red Cell Distribution Width 14.4 % (11.5-14.5)
[2016-04-11 07:05] LABS: BUN/Creatinine Ratio 16 (6-26); Blood Urea Nitrogen 9 mg/dL (7-20); Calcium 8.5 mg/dL (8.6-10.8); Carbon Dioxide 27 mEq/L (19-29); Chloride 94 mEq/L (98-109); Glucose 109 mg/dL (70-99); Osmolality,Calculated 267 (280-300); Sodium 129 mEq/L (136-145); eGFR For African Americans > 60 (> 60); eGFR For Non-African Americans > 60 (> 60)
[2016-04-11] MEDS: *HR* Morphine 2 MG/ML SYRINGE IVP PRN ×2 (07:50→17:28)
[2016-04-11] MEDS: *HR* Heparin 5,000 UNIT/ML VIAL SQ SCH ×2 (07:56→23:37)
[2016-04-11] MEDS: Sennosides/Docusate Sodium TABLET PO SCH (07:56)
[2016-04-11] MEDS: Levofloxacin 750 MG/150 ML 750 MG/150 ML BAG IVPB SCH (07:57)
[2016-04-11] MEDS: Folic Acid 1 MG TABLET PO SCH (07:57)
[2016-04-11] MEDS: Cyanocobalamin (B-12) 1,000 MCG TABLET PO SCH (07:57)
[2016-04-11] MEDS: Cholecalciferol (D-3) 1,000 UNIT TABLET PO SCH (07:57)
--- NOTE | 2016-04-11 08:08 | ECHO - Doppler Report ---
Echocardiogram Name: Christin Menon Date of Study: 04/10/2016 Date: 1960 Ht: 64.0 in Medical Record#: [id number] Age: 55 Wt: 200.0 lb Gender: Female BSA: 1.96 Order #: [id number] Location: [facility] Room #: [facility] Reading Physician: Amador Sanchez DO, LISA GUILLEN FASNC Crystal Lapper: Nidia Looney Ordering Physician: Barbara Regan MD Primary Physician: Swapnil Philippe DO Indications: Persistent staph bacteremia Impressions: Sinus tachycardia. LVEF 70%. Normal LV chamber size, wall thickness and function. Normal right ventricular structure and function. Mild left ventricular diastolic dysfunction. Borderline mild pulmonary hypertension. Estimated RVSP is 36 mmHg. No significant valvular disease observed. Left Ventricular Wall Motion: Rest Echo Findings All wall segments showed normal motion. Findings: Study Quality * Technically adequate exam. ECG Findings * Sinus tachycardia. Left Ventricle * LVEF 70%. * Normal LV chamber size, wall thickness and function. * Mild left ventricular diastolic dysfunction. Right Ventricle * Normal right ventricular structure and function. Left Atrium * Mildly dilated left atrium. Right Atrium * Normal right atrial size. Interatrial Septum * No obvious evidence of PFO by color Doppler. Aortic Valve * Trileaflet aortic valve. * Normal aortic valve function. * No aortic regurgitation. * No aortic stenosis. Mitral Valve * Mildly thickened mitral valve leaflets. * Trace mitral regurgitation. * No mitral stenosis. Tricuspid Valve * Normal tricuspid valve structure and function. * Trace tricuspid regurgitation. * Borderline mild pulmonary hypertension. * Estimated RVSP is 36 mmHg. * Estimated RA pressure is 5 mmHg. Pulmonic Valve * Pulmonic valve not well visualized. * No pulmonic regurgitation. Aorta * Normally sized aortic root. Pericardium * The pericardium appears normal. IVC * Normal IVC dimensions. Response to Valsalva not well appreciated. Pulmonary Artery * Normal visualized portions of the main pulmonary artery. History Hypertension Hypercholesteremia Family History of CAD 10/22/2015 a Previous Echo was performed. Measurements: BP: 129/ 76 2D Normal Values RVIDd: 3.00 cm <2.7 cm IVSd: 1.10 cm 0.6 - 1.0 cm LVIDd: 4.80 cm 3.7 - 5.6 cm LVPWd: 1.10 cm 0.6 - 1.1 cm LVIDs: 3.30 cm 1.5 - 3.6 cm AO: 2.80 cm < 4.0 cm LA: 4.30 cm 2.0 - 4.0cm %FS: 31.30 cm >25 % LA volume: 68 Mitral Valve Peak E:1.06 m/sec Peak A:1.40 m/sec E/A Ratio:0.8 Tricuspid Valve TV Regurg Peak Grad: 32.00mmHg TV Regurg Peak Mohsen: 2.81m/sec Updated by Amador Sanchez DO, FACOma, LISA, CRUZ on 04/11/2016 8:02:14 AM electronically signed on 04/11/2016 8:02:33 AM with status of Final Wall Motion Randle: 1=Normal, 2=Hypokinesis, 3=Akinesis, 4=Dyskinesis, 5=Aneurysmal, 6=Hyperkinetic, X=Not Visualized (Blank)=Missing
[2016-04-11 09:25] LABS: Lymphocytes # 2.2 K/mcL (0.6-4.6); Monocytes # 2.2 K/mcL (0.0-1.3); Neutrophils # 15.3 K/mcL (1.6-8.9); Platelet Estimate Normal (Normal)
[2016-04-11] MEDS: Fluticasone Propionate Nasal 50 MCG/SPRAY BOTTLE NS SCH (10:04)
[2016-04-11] MEDS: *HR* HYDROcodone/Acet 5/325 mg TABLET PO PRN (12:16)
--- NOTE | 2016-04-11 18:12 | Internal Med Progress Note ---
Date of Encounter: 04/11/16 Time of Encounter: 12:30 - Assessment and plan (1) Pneumonia Current Visit: Yes Status: Acute Assessment and plan: CT abdomen shows incidental finding of right lower lobe pneumonia. Continue IV Levaquin. Noted to require 2-3 L/m supplemental oxygen via nasal cannula. Monitor vital signs closely. Serum lactic acid noted to be within normal limits. Qualifiers: Pneumonia type: due to unspecified organism Laterality: right Lung location: lower lobe of lung Qualified Code(s): J18.1 - Lobar pneumonia, unspecified organism (2) Discitis of lumbar region Current Visit: Yes Status: Acute Assessment and plan: Patient continues to have worsening leukocytosis, persistent bacteremia and acute on chronic severe low back pain. MRI lumbar spine is suggestive of epidural abscess/right psoas muscle abscess. Case discussed with spine surgery Dr. Woo, plan for laminectomy today. Continue IV antibiotics for MSSA bacteremia- cefazolin along with IV Levaquin. Noted to have elevated ESR and CRP. High risk for complications. Pain control with when necessary IV morphine and oral Percocet. (3) Gram-positive bacteremia Current Visit: Yes Status: Acute Assessment and plan: Initial blood cultures from 04/07, 2 out of 2 sets grew MSSA and patient's antibiotics have been changed to IV cefazolin. Repeat blood cultures from , 1 out of 2 sets grows staph-like gram-positive cocci. 2-D echocardiogram reviewed, shows no evidence of valvular abnormalities/vegetations. Repeat blood cultures sent today. (4) Acute encephalopathy Current Visit: Yes Status: Resolved (5) UTI (urinary tract infection) Current Visit: Yes Status: Ruled-out Qualifiers: Urinary tract infection type: site unspecified Hematuria presence: without hematuria Qualified Code(s): N39.0 - Urinary tract infection, site not specified (6) Essential hypertension Current Visit: Yes Status: Chronic (7) Anxiety Current Visit: Yes Status: Chronic (8) Depression Current Visit: Yes Status: Chronic Qualifiers: Depression Type: unspecified Qualified Code(s): F32.9 - Major depressive disorder, single episode, unspecified (9) Recurrent falls Current Visit: Yes Status: Chronic (10) Anemia Current Visit: Yes Status: Chronic Qualifiers: Anemia type: B12 deficiency Vitamin B12 deficiency anemia type: intrinsic factor deficiency Qualified Code(s): D51.0 - Vitamin B12 deficiency anemia due to intrinsic factor deficiency (11) B12 deficiency Current Visit: Yes Status: Chronic (12) Iron deficiency Current Visit: Yes Status: Chronic (13) Vitamin D deficiency Current Visit: Yes Status: Chronic - Subjective Interval history: Continues to feel weak and occasionally confused but answers appropriately. No chest pain, dyspnea, leg weakness or numbness. Reports left arm weakness; - Constitutional Vitals: Temp Pulse Resp BP Pulse Ox 98.3 F 92 16 137/81 98 04/11/16 16:33 04/11/16 16:33 04/11/16 16:33 04/11/16 16:33 04/11/16 16:33 General appearance: Present: A&O X 3, obese, answers questions appropriately - Respiratory Respiratory exam: Present: CTAB (anterolaterally; unable to examine completely as patient has severe pain with movement). Absent: accessory muscle use, rhonchi, wheezes - Cardiovascular Cardiovascular exam: Present: RRR, +S1, +S2. Absent: diastolic murmur, gallop, rubs, systolic murmur - GI/Abdominal GI/Abdominal exam: Present: normal bowel sounds, soft, no peritoneal signs. Absent: distended, tenderness - Extremities Exam Extremities exam: Present: full ROM, warm, radial pulses palpable and symetrical. Absent: calf tenderness, cyanotic, pedal edema - Neurological Exam Neurological exam: Present: CN II-XII intact, oriented X3, no focal deficits. Absent: pronater drift, facial droop, speech deficit - Skin Skin exam: Present: dry, intact Internal Medicine: Result - Labs CBC & Chem 7: 04/12/16 08:03 04/12/16 08:03 Labs: Short CBC 04/11/16 Range/Units 06:31 WBC 19.6 H (4.3-11.1) K/mcL Hgb 9.3 L (11.5-15.4) g/dL Hct 27.4 L (35.3-44.9) % Plt Count 333 (140-400) K/mcL Neutrophils # 15.3 H (1.6-8.9) K/mcL BMP 04/11/16 06:31 Sodium 129 L Potassium 3.0 L Chloride 94 L Carbon Dioxide 27 BUN 9 Creatinine 0.58 Glucose 109 H Calcium 8.5 L - Impressions Impressions Abdomen/Pelvis CT 04/10/16 14:30 IMPRESSION: 1. Sclerosis with endplate irregularity at L2-L3 with retroperitoneal/prevertebral soft tissue at this level and a few foci of gas in this region. Soft tissue stranding and gas is new since 04/07/2016. Findings are suspicious for acute discitis/osteomyelitis. 2. There is a questionable filling defect within the region IVC at L2-L3 which may be related to adjacent soft tissue and artifact from the hardware. IVC thrombus cannot be entirely excluded. 3. Soft tissue stranding and ascites which extends down into the pelvis likely reactive. There is also mild right perinephric stranding which can be correlated with urinalysis. 4. Right lower lobe pneumonia with trace bilateral pleural effusions. 5. Moderate hiatal hernia. Results were called to Dr. Barbara Regan at 15:48 on 04/10/2016. D/ / 04/10/2016 15:53:43 Chantel Best MD / Criss Gutierrez Interpreting Provider: Chantel Best MD Lumbar Spine MRI 04/10/16 15:50 IMPRESSION: Artifact degraded exam. Partially visualized right psoas muscle mass, possibly reflecting a resolving hematoma or complex abscess. Also, possible epidural abscess within the lower thoracic spine extending into the upper lumbar spine, resulting in severe thecal sac narrowing with mass-effect on the cauda equina. Correlate for clinical signs of cauda equina syndrome. The findings were sent to the Radiology Results Communication Center at 8:38 pm on 04/10/2016to be communicated to a licensed caregiver. D/ / Lenard Juárez MD / Lenard Juárez MD Interpreting Provider: Lenard Juárez MD Lumbar Spine X-Ray 04/11/16 14:23 IMPRESSION: Unchanged fusion extending from L3-L5. Moderate to severe degenerative disc disease at the level above the fusion. Moderate dense formed stool load consistent with constipation. D/ / Ulises Mark MD / Ulises Mark MD Interpreting Provider: Ulises Mark MD Consult Discharge Plan - Plan Referrals: Marie Patel MD [Partnered Physician] - 04/15/16 10:00 am Swapnil Philippe DO [Primary Care Provider] - 07/07/16 2:00 pm Isidro Fairbanks DO [Partnered Physician] - 04/14/16 10:20 am Nancy Frank MD [Partnered Physician] - 04/10/16 10:15 am NO,PCP [Non-Partnered Physician] -
[2016-04-11] MEDS ORDERED: *HR* Propofol 200 MG/20 ML VIAL IVP ONE (18:23)
[2016-04-11] MEDS ORDERED: *HR* FentaNYL (PF) 100 MCG/2 ML VIAL ONE (18:23)
[2016-04-11] MEDS ORDERED: *HR* Succinylcholine 200 MG/10 ML VIAL IVP ONE (18:23)
[2016-04-11] MEDS ORDERED: Lidocaine -MPF 2% 2 ML VIAL ONE (18:23)
[2016-04-11] MEDS ORDERED: *HR* Midazolam HCl 2 MG/2 ML VIAL ONE (18:23)
--- NOTE | 2016-04-11 18:24 | Anesthesia Evaluation PreOp ---
Date of Encounter: 04/11/16 Time of Encounter: 18:22 - Past History Planned Operation: Explore Fusion, Remove Hardware Cardiac History: HTN Pulmonary History: Other (pneumonia) RN TEAM LEADER History: Denies Any Significant HX Other Medical History: GERD Anesthesia History: No Prior Anesthetic Complications, Past Anesthesia Alcohol Use: none Drug use: none Medications and Allergies Pantoprazole Sodium [Protonix] 40 mg PO BID 03/15/15 [History] Tizanidine HCl [Zanaflex] 4 mg PO BID PRN 03/15/15 [History] Alprazolam [Xanax 1 MG Tablet] 1 mg PO BID 09/19/15 [History] Bupropion HCl [Wellbutrin Xl] 300 mg PO DAILY 09/19/15 [History] Carvedilol [Coreg] 25 mg PO BID 09/19/15 [History] Duloxetine HCl [Cymbalta] 30 mg PO DAILY 09/19/15 [History] Meloxicam 15 mg PO DAILY 09/19/15 [History] SUMAtriptan Succinate [Imitrex] 100 mg PO PRN PRN 09/19/15 [History] Amlodipine Besylate 10 mg PO DAILY 10/09/15 [History] Fluticasone Propionate Nasal [Flonase] 1 spray NS DAILY 10/09/15 [History] Hydrochlorothiazide 25 mg PO DAILY 10/09/15 [History] Lactulose 15 ml PO BID 10/09/15 [History] Losartan Potassium [Cozaar] 50 mg PO DAILY 10/09/15 [History] Cyanocobalamin (B-12) [Vitamin B12] 1,000 mcg PO DAILY #90 tablet 10/25/15 [Rx] Cholecalciferol (Vitamin D3) [Vitamin D] 1,000 unit PO DAILY #90 capsule [Rx] HYDROcodone/Acet 5/325 mg [[place] 5-325 mg] 1 tab PO Q6HR PRN #10 tablet [Rx] Allergies Sulfa (Sulfonamide Antibiotics) Allergy (Verified 04/08/16 14:31) Rash - Meds/Allergy Pre-op Review Medications Reviewed: Yes Allergies Reviewed: Yes Beta Blockers on Current Med List: Yes Anesthesia Results - Labs 04/11/16 06:31 04/11/16 06:31 - Imaging EKG: report reviewed (04/08/2016 ST, possible LAE, NSST abnormality) Additional studies: 04/10/2016 Echo LVEF 70% sinus tachycardia mild LV diastolic dysfunction borderline pulmonary HTN no significant valvular dysfunction 06/07/2015 Stress EF 60% perfusion imaging was negative for ischemia or infarct Anesthesia Exam Vital Signs/O2 Sat, Most Current Temp Pulse Resp BP Pulse Ox 98.3 F 92 16 137/81 98 04/11/16 16:33 04/11/16 16:33 04/11/16 16:33 04/11/16 16:33 04/11/16 16:33 Height: 5'4''/1.63 m Weight: 200 lbs/90.718 kg NPO (# of Hours): 8 Pain Scale: 10 Pain Scale Used: Numeric (1 - 10) - HEENT Pupil (Motor): EOMI Mallampati: II Teeth: Normal Oral Opening: Greater than 3 - RN TEAM LEADER LOC: Oriented RN TEAM LEADER Motor: Normal RUE, Normal Face, Deficit LUE, Deficit RLE, Deficit LLE RN TEAM LEADER Sensory: Normal: RUE, Face, Deficit: LUE, RLE, LLE - Cardiac Rhythm: Regular Murmur: None - Pulmonary Breath Sounds: bilateral Clear (distant BS) Respiratory Effort: Symmetrical Anesthesia Assess/Plan ASA Score: 3 Modified Hal Scale for Level of Consciousness: Cooperative, oriented, and tranquil Anesthetic Plan: General Monitoring Plan: Standard Monitors Recovery Plan: PACU
--- NOTE | 2016-04-11 19:01 | Spinal Consult Note ---
Date of Encounter: 04/11/16 Time of Encounter: 14:05 Assessment and Plan (1) History of lumbar fusion Current Visit: Yes Status: Chronic (2) Epidural abscess Current Visit: Yes Status: Acute She has had low-grade temperatures. She is alert and oriented. She has some generalized weakness in the lower extremities but is able to fire all lower extremity motor groups. Hamstrings quadriceps dorsiflexion and plantar flexion is approximately 4 to motor scale. She has no clonus. Her hips move symmetrically. She fires upper extremity motor groups with good strength. Radiographs of the lumbar spine reveal satisfactory position of the hardware and interbody grafts L3-L5. There are multilevel degenerative changes. MRI of the lumbar spine reveals what appears to be discitis at L2-3. There is a psoas abscess as well as a distal thoracolumbar epidural abscess. There is hardware and instrumentation and evidence of previous decompression L3-L5. Impression: 1) discitis 2) gram-positive bacteremia 3) history of urinary tract infection 4) epidural abscess 5) history of lumbar fusion 6) psoas abscess Plan: Due to her likelihood for neurologic progression and to have an opportunity to clear her infection I find it reasonable to perform exploration of fusion, removal of hardware, irrigation and debridement, thoracic or lumbar laminectomies to evacuate abscess. She will require long-term IV antibiotic therapy. We are going to get baseline ESR, CRP, and CBC with differential and follow these infectious markers postoperatively to assess efficacy of treatment. We will take intraoperative cultures as well, however the causative organism is likely to be the same as what has been identified for her bacteremia. I suggest infectious disease consult as well, if not available, would consider phone consultation or later transfer to a facility that has infectious disease support. Risks benefits and possible complications of the procedure were discussed and the patient would like to proceed. History of Present Illness Chief complaint: Pain in back, legs weaker, HPI: Ms. Menon is a 55 year old female History of instrumented lumbar fusion 8 years ago. She was admitted 3 days ago with onset of confusion as well as a urinary tract infection. She was placed on empiric antibiotics. Further workup as noted in MRI of the lumbar spine that was consistent with discitis and abscess. We are asked to see regarding definitive management. Past Med Surg Social Fam HX - Past Medical History Medical history: arthritis, GERD, hypertension, other Psychiatric history: anxiety, depression - Past Surgical History Surgical History: hysterectomy, orthopedic, other - Social History Smoking Status: Never smoker Smokeless Tobacco Status: No Alcohol use: none Drug use: none - Family History Mother Living Status: Still Living Hx Family Cancer: Yes (breast cancer) Father Age: 63 Living Status: Hx Family Cardiac Disorders: Yes Medications and Allergies Pantoprazole Sodium [Protonix] 40 mg PO BID 03/15/15 [History] Tizanidine HCl [Zanaflex] 4 mg PO BID PRN 03/15/15 [History] Alprazolam [Xanax 1 MG Tablet] 1 mg PO BID 09/19/15 [History] Bupropion HCl [Wellbutrin Xl] 300 mg PO DAILY 09/19/15 [History] Carvedilol [Coreg] 25 mg PO BID 09/19/15 [History] Duloxetine HCl [Cymbalta] 30 mg PO DAILY 09/19/15 [History] Meloxicam 15 mg PO DAILY 09/19/15 [History] SUMAtriptan Succinate [Imitrex] 100 mg PO PRN PRN 09/19/15 [History] Amlodipine Besylate 10 mg PO DAILY 10/09/15 [History] Fluticasone Propionate Nasal [Flonase] 1 spray NS DAILY 10/09/15 [History] Hydrochlorothiazide 25 mg PO DAILY 10/09/15 [History] Lactulose 15 ml PO BID 10/09/15 [History] Losartan Potassium [Cozaar] 50 mg PO DAILY 10/09/15 [History] Cyanocobalamin (B-12) [Vitamin B12] 1,000 mcg PO DAILY #90 tablet 10/25/15 [Rx] Cholecalciferol (Vitamin D3) [Vitamin D] 1,000 unit PO DAILY #90 capsule [Rx] HYDROcodone/Acet 5/325 mg [Romney 5-325 mg] 1 tab PO Q6HR PRN #10 tablet [Rx] Allergies Sulfa (Sulfonamide Antibiotics) Allergy (Verified 04/08/16 14:31) Rash Results - Labs Result Diagrams: 04/11/16 06:31 04/11/16 06:31 Labs: Abnormal lab results WBC 19.6 K/mcL (4.3-11.1) H 04/11/16 06:31 RBC 3.28 M/mcL (3.82-4.97) L 04/11/16 06:31 Hgb 9.3 g/dL (11.5-15.4) L 04/11/16 06:31 Hct 27.4 % (35.3-44.9) L 04/11/16 06:31 Neutrophils # 15.3 K/mcL (1.6-8.9) H 04/11/16 06:31 Monocytes # 2.2 K/mcL (0.0-1.3) H 04/11/16 06:31 Anisocytosis 1+ (Not Present) A 04/09/16 06:21 Macrocytosis Present (Not Present) A 04/09/16 06:21 ESR 122 mm/hr (0-15) H 04/10/16 04:30 Sodium 129 mEq/L (136-145) L 04/11/16 06:31 Potassium 3.0 mEq/L (3.5-4.5) L 04/11/16 06:31 Chloride 94 mEq/L (98-109) L 04/11/16 06:31 Glucose 109 mg/dL (70-99) H 04/11/16 06:31 POC Glucose 117 (58-89) H 04/09/16 05:24 Calculated Osmolality 267 (280-300) L 04/11/16 06:31 Calcium 8.5 mg/dL (8.6-10.8) L 04/11/16 06:31 Total Bilirubin 2.6 mg/dL (0.2-1.2) H 04/07/16 20:16 AST 36 Units/L (5-34) H 04/07/16 20:16 Alkaline Phosphatase 235 Units/L (38-126) H 04/07/16 20:16 C-Reactive Protein 323 mg/L (Less than 5) H 04/10/16 04:30 Albumin 2.6 g/dL (3.5-5.0) L 04/07/16 20:16 Globulin 4.4 g/dL (2.4-3.5) H 04/07/16 20:16 Albumin/Globulin Ratio 0.6 (1.1-2.2) L 04/07/16 20:16 Vitamin B12 > 2000 pg/mL (213-816) H 04/08/16 06:50 Folate 4.7 ng/mL (7.0-31.4) L 04/08/16 06:50 Urine Color [place] (Yellow) A 04/07/16 22:10 Ur Specific [place] > 1.030 (1.010-1.025) H 04/07/16 22:10 Urine Protein 100 mg/dL (Neg-Trace) H 04/07/16 22:10 Urine Glucose (UA) 250 mg/dL (Normal) H 04/07/16 22:10 Urine Ketones Trace mg/dL (Negative) H 04/07/16 22:10 Urine Blood Trace (Negative) H 04/07/16 22:10 Urine Bilirubin Moderate (Negative) H 04/07/16 22:10 Ur Leukocyte Esterase Small (Negative) H 04/07/16 22:10 Urine Microscopic WBC 5-15 per hpf (0-3) H 04/07/16 22:10 Ur Squamous Epith Cells Many per lpf (None-Few) H 04/07/16 22:10 Ur Culture Indicated? YES (NO) A 04/07/16 22:10 Urine Opiates Screen Positive ng/mL (Gbopcf=454) H 04/07/16 22:10 U Benzodiazepines Scrn Positive ng/mL (Bgkowy=075) H 04/07/16 22:10 Staphylococcus sp PCR DETECTED (Not Detect) A 04/09/16 06:21 Staph aureus (PCR) DETECTED (Not Detect) A 04/09/16 06:21 H & H 04/11/16 Range/Units 06:31 Hgb 9.3 L (11.5-15.4) g/dL Hct 27.4 L (35.3-44.9) % All other labs normal. Consult Discharge Plan - Plan Referrals: Marie Patel MD [Partnered Physician] - 04/15/16 10:00 am Swapnil Philippe DO [Primary Care Provider] - 07/07/16 2:00 pm Isidro Fairbanks DO [Partnered Physician] - 04/14/16 10:20 am Nancy Frank MD [Partnered Physician] - 04/10/16 10:15 am NO,PCP [Non-Partnered Physician] -
[2016-04-11] MEDS ORDERED: *HR* Rocuronium Bromide 50 MG/5 ML VIAL ONE (19:03)
[2016-04-11] MEDS ORDERED: Vancomycin 1,000 MG VIAL ONE (19:05)
[2016-04-11] MEDS ORDERED: Acetaminophen IV 1,000 MG/100 ML INFUS..BTL ONE (19:50)
[2016-04-11] MEDS ORDERED: Melatonin 3 MG TABLET PO SCH (21:00)
--- NOTE | 2016-04-11 22:19 | Orthopedic Operative Note ---
Date of procedure: 04/11/16 Pre-op diagnosis: epidural abcess, discitis, hisory of spinal fusion Post-op diagnosis: same Operation/Findings: Exploration of fusion, removal of hardware, irrigation and debridement, laminectomy T12-L2: The patient was brought to the operative theater where she underwent general endotracheal anesthesia. She was given antibiotics on the floor for treatment of her bacteremia prior to the start of the procedure. Compression boots and stockings were used for deep vein thrombosis prophylaxis. The patient was placed prone on a [place] table. The back was prepped and draped in the usual sterile fashion. An incision was marked and centered over the bilateral hardware L3-L5. These were 2 separate incisions directly over the hardware approximately 1 and 1/2 cm on either side of midline. We used Bovie cautery to make an incision and then this incision was deepened through the lumbar fascia. Bovie cautery and Snider elevators were used to reflect the paraspinal musculature. We exposed the pedicle screws and rods and subsequently removed all hardware bilaterally using standard instruments. The wound was copiously irrigated and the fusion explored and there appeared to be a solid fusion at each level without pseudarthrosis. We then used fluoroscopy to identify the L2-3 level. We then removed the supraspinous and interspinous ligaments between L2 and L3 and subsequently removed the ligamentum flavum from its origin on the distal undersurface of the L2 lamina. The ligamentum flavum was noted to be quite hypertrophied. This required performed a laminectomy of L2 with undercutting of the L1-L2 facets to decompress the lateral recesses. We moved proximally to T12-L1 and again removed intervening ligamentum flavum and undercut the facets at this level, and performed a L1 laminectomy. He decompress the T12-L1 level as well. Did not see gross purulent material in the canal but the area the decompression from T12-L2 was thoroughly irrigated with vancomycin impregnated normal saline. He took for graft showing some of the areas of decompression. We copiously irrigated the wound and then closed the three wounds in layers with 1 Vicryl for the fascia, 2-0 Vicryl for the subcutaneous tissue, and Dermabond was used for skin closure. Sterile dressings were placed over the wound, the patient was turned supine in a hospital bed, and was extubated in the operative theater. All sponge needles and instrument counts were correct at the end of the procedure. The patient tolerated the procedure well without complications. Anesthesia: GETA Surgeon: Ulises Woo Jr Estimated blood loss (cc): 100 Condition: stable Disposition: PACU
[2016-04-11] MEDS ORDERED: Ondansetron 4 MG/2 ML VIAL IVP ONE (22:27)
[2016-04-11] MEDS ORDERED: *HR* HYDROmorphone (PF) 1 MG/ML SYRINGE IVP PRN (22:27)
[2016-04-11] MEDS ORDERED: 0.9 % Sodium Chloride 500 ML ONE (22:32)
--- NOTE | 2016-04-11 22:48 | Anesthesia Evaluation Post Op ---
Date of Encounter: 04/11/16 Time of Encounter: 23:00 - Vital Signs Vital Signs: Vital Signs/O2 Sat/Glucose, Most Current Temp Pulse Resp BP Pulse Ox 04/11/16 22:35 92 16 126/85 99 04/11/16 22:25 92 20 114/84 97 04/11/16 22:15 100.2 F H 87 11 106/50 97 - Lungs Lungs: Clear Ascult./Percussion - Airway Airway: Non-obstructed - Cardiovascular Regular Rate - Mental Status Mental Status: Alert & Oriented, Answers Appropriately - Pain Pain Scale: 1 - Nausea Vomiting Nausea Vomiting: Not Present - Hydration Hydration: NPO - Discharge PostOp Status: Transfer Patient to floor
[2016-04-11] MEDS ORDERED: Naloxone 0.4 MG/ML INJ IVP PRN (23:06)
[2016-04-11] MEDS ORDERED: SUMAtriptan succinate 50 MG TABLET PO PRN (23:06)
[2016-04-12] MEDS: *HR* HYDROcodone/Acet 5/325 mg TABLET PO PRN ×4 (01:18→22:34)
[2016-04-12] MEDS: *HR* Morphine 2 MG/ML SYRINGE IVP PRN ×3 (02:42→19:48)
[2016-04-12] MEDS: Acetaminophen 325 MG TABLET PO PRN (05:22)
[2016-04-12] MEDS: *HR* Heparin 5,000 UNIT/ML VIAL SQ SCH ×2 (06:58→19:48)
[2016-04-12 08:43] LABS: BUN/Creatinine Ratio 17 (6-26); Blood Urea Nitrogen 11 mg/dL (7-20); Calcium 7.9 mg/dL (8.6-10.8); Carbon Dioxide 21 mEq/L (19-29); Chloride 97 mEq/L (98-109); Glucose 169 mg/dL (70-99); Osmolality,Calculated 269 (280-300); Sodium 128 mEq/L (136-145); eGFR For African Americans > 60 (> 60); eGFR For Non-African Americans > 60 (> 60)
[2016-04-12 08:44] LABS: Potassium 4.5 mEq/L (3.5-4.5)
[2016-04-12 08:56] LABS: Hematocrit 26.1 % (35.3-44.9); Hemoglobin 8.6 g/dL (11.5-15.4); Immature Platelets 4.6 % (1.1-6.1); Mean Corpuscular Hemoglobin 29.1 pg (28.0-33.3); Mean Corpuscular Volume 88.2 fL (83.0-100.0); Mean Platelet Volume 10.7 fL (9.4-12.4); Nucleated Red Blood Cells 0.1 /100 WBC (0); Platelet Count 381 K/mcL (140-400); Red Blood Count 2.96 M/mcL (3.82-4.97); Red Cell Distribution Width 15.5 % (11.5-14.5)
[2016-04-12] MEDS ORDERED: hydroCHLOROthiazide 25 MG TABLET PO SCH (09:00)
[2016-04-12] MEDS: Sennosides/Docusate Sodium TABLET PO SCH ×2 (09:10→20:21)
[2016-04-12] MEDS: Folic Acid 1 MG TABLET PO SCH (09:11)
[2016-04-12] MEDS: Fluticasone Propionate Nasal 50 MCG/SPRAY BOTTLE NS SCH (09:12)
[2016-04-12] MEDS: Levofloxacin 750 MG/150 ML 750 MG/150 ML BAG IVPB SCH (09:12)
[2016-04-12 09:47] LABS: Lymphocytes # 0.9 K/mcL (0.6-4.6); Monocytes # 1.7 K/mcL (0.0-1.3); Neutrophils # 18.5 K/mcL (1.6-8.9)
[2016-04-12 09:48] LABS: Polychromasia 1+ (Not Present)
--- NOTE | 2016-04-12 18:25 | Internal Med Progress Note ---
Date of Encounter: 04/12/16 Time of Encounter: 16:30 - Assessment and plan (1) Hyponatremia Current Visit: Yes Status: Acute Assessment and plan: Hypoosmolar hyponatremia. Likely due to dehydration. We will start IV normal saline and monitor serum sodium closely. Hold hydrochlorothiazide for now. Check urine osmolality, serum osmolality and urine sodium. (2) Pneumonia Current Visit: Yes Status: Acute Assessment and plan: CT abdomen shows incidental finding of right lower lobe pneumonia. Continue IV Levaquin. Noted to require 2-3 L/m supplemental oxygen via nasal cannula. Monitor vital signs closely. Serum lactic acid noted to be within normal limits. Qualifiers: Pneumonia type: due to unspecified organism Laterality: right Lung location: lower lobe of lung Qualified Code(s): J18.1 - Lobar pneumonia, unspecified organism (3) Discitis of lumbar region Current Visit: Yes Status: Acute Assessment and plan: Patient continues to have worsening leukocytosis, and acute on chronic severe low back pain. MRI lumbar spine is suggestive of epidural abscess/right psoas muscle abscess, spine surgery was consulted and patient underwent exploration of lumbar fusion, removal of hardware, drainage of abscess, laminectomy T12-L2, postoperative day 1. Still reports significant pain but otherwise doing well, able to participate in physical therapy. Patient requires long-term IV antibiotics. We will continue to monitor WBC, ESR, CRP and discussed with infectious diseases at [facility]. Continue IV antibiotics for MSSA bacteremia- cefazolin along with IV Levaquin. High risk for complications. Pain control with when necessary IV morphine and oral Percocet. Start lactulose along with senna/Colace/Dulcolax. (4) Gram-positive bacteremia Current Visit: Yes Status: Acute Assessment and plan: Initial blood cultures from 04/07, 2 out of 2 sets grew MSSA and patient's antibiotics have been changed to IV cefazolin. Repeat blood cultures from , 1 out of 2 sets grows staph-like gram-positive cocci. 2-D echocardiogram reviewed, shows no evidence of valvular abnormalities/vegetations. Repeat blood cultures pending. (5) Acute encephalopathy Current Visit: Yes Status: Resolved (6) UTI (urinary tract infection) Current Visit: Yes Status: Ruled-out Qualifiers: Urinary tract infection type: site unspecified Hematuria presence: without hematuria Qualified Code(s): N39.0 - Urinary tract infection, site not specified (7) Essential hypertension Current Visit: Yes Status: Chronic (8) Anxiety Current Visit: Yes Status: Chronic (9) Depression Current Visit: Yes Status: Chronic Qualifiers: Depression Type: unspecified Qualified Code(s): F32.9 - Major depressive disorder, single episode, unspecified (10) Recurrent falls Current Visit: Yes Status: Chronic (11) Anemia Current Visit: Yes Status: Chronic Qualifiers: Anemia type: B12 deficiency Vitamin B12 deficiency anemia type: intrinsic factor deficiency Qualified Code(s): D51.0 - Vitamin B12 deficiency anemia due to intrinsic factor deficiency (12) B12 deficiency Current Visit: Yes Status: Chronic (13) Iron deficiency Current Visit: Yes Status: Chronic (14) Vitamin D deficiency Current Visit: Yes Status: Chronic - Subjective Interval history: Reports persistent low back pain, worse with movements. Was able to sit up in chair and work with physical therapy this morning. Poor appetite due to pain. No nausea or vomiting. Reports constipation for about 5-6 days, this is a common problem for her, usually improved with lactulose. - Constitutional Vitals: Temp Pulse Resp BP Pulse Ox 98.2 F 94 16 116/75 98 04/12/16 12:34 04/12/16 12:34 04/12/16 12:34 04/12/16 12:34 04/12/16 12:34 General appearance: Present: A&O X 3, obese, answers questions appropriately - Respiratory Respiratory exam: Present: CTAB. Absent: accessory muscle use, rales, rhonchi, wheezes - Cardiovascular Cardiovascular exam: Present: RRR, +S1, +S2. Absent: diastolic murmur, gallop, rubs, systolic murmur - GI/Abdominal GI/Abdominal exam: Present: normal bowel sounds, soft, no peritoneal signs. Absent: distended, tenderness - Back Exam Additional comments: Surgical dressing dry and intact over lower thoracic and upper lumbar spine area. Minimal tenderness noted. Internal Medicine: Result - Labs CBC & Chem 7: 04/12/16 08:03 04/12/16 08:03 Labs: Short CBC 04/12/16 Range/Units 08:03 WBC 21.5 H (4.3-11.1) K/mcL Hgb 8.6 L (11.5-15.4) g/dL Hct 26.1 L (35.3-44.9) % Plt Count 381 (140-400) K/mcL Neutrophils # 18.5 H (1.6-8.9) K/mcL BMP 04/12/16 08:03 Sodium 128 L Potassium 4.5 D Chloride 97 L Carbon Dioxide 21 BUN 11 Creatinine 0.64 Glucose 169 H Calcium 7.9 L - Impressions Impressions Fluoroscopy 04/11/16 00:00 IMPRESSION: Intraprocedural fluoroscopic spot images as above. See separate procedure report for more information. D/ / Rickey Olivo MD / Rickey Olivo MD Interpreting Provider: Rickey Olivo MD - VTE Documentation of Mechanical Device: Intermittent pneumatic compression device Consult Discharge Plan - Plan Referrals: Marie Patel MD [Partnered Physician] - 04/15/16 10:00 am Swapnil Philippe DO [Primary Care Provider] - 07/07/16 2:00 pm Isidro Fairbanks DO [Partnered Physician] - 04/14/16 10:20 am Nancy Frank MD [Partnered Physician] - 04/10/16 10:15 am HOLDEN,PCP [Non-Partnered Physician] -
[2016-04-12] MEDS: 0.9 % Sodium Chloride 1,000 ML IVC SCH (19:42)
[2016-04-12] MEDS: Lactulose Oral Soln 20 GM/30 ML UDC PO SCH (20:20)
[2016-04-12] MEDS: Melatonin 3 MG TABLET PO SCH (20:21)
[2016-04-12] MEDS: ALPRAZolam 1 MG TABLET PO PRN (22:24)
[2016-04-12] MEDS: ceFAZolin 2,000 MG in D5% in Water 100 ML IVPB SCH (23:55)
[2016-04-13] MEDS: *HR* Morphine 2 MG/ML SYRINGE IVP PRN ×3 (00:02→21:18)
[2016-04-13] MEDS: 0.9 % Sodium Chloride 1,000 ML IVC SCH ×2 (06:19→18:33)
[2016-04-13] MEDS: *HR* Heparin 5,000 UNIT/ML VIAL SQ SCH ×2 (06:20→18:38)
--- NOTE | 2016-04-13 06:56 | Spine Progress Note ---
Date of Encounter: 04/13/16 Time of Encounter: 06:52 - Assessment and Plan (1) History of lumbar fusion Current Visit: Yes Status: Chronic (2) Epidural abscess Current Visit: Yes Status: Acute Subjective Principal diagnosis: epidural abcess, bacteremia, UTI, history of spinal fusion Interval history: The patient is without complaints. Afebrile vital signs are stable. Dressing is clean dry and intact. Neurovascularly intact with regard to bilateral lower extremities. Some weakness in left triceps. . Assessment :stable. Plan mobilize ,continue analgesics, Blood cultures to assess clearance of bacteremia and need negative cultures prior to PICC line. Will obtain MRI of cervical spine secondary to left upper extremity weakness. Objective Vital signs: Vital Signs Temp Pulse Resp BP Pulse Ox 04/13/16 04:00 97.8 F 102 18 118/78 98 04/13/16 00:00 97.5 F L 91 17 112/75 97 04/12/16 20:00 97.8 F 90 17 118/77 97 04/12/16 12:34 98.2 F 94 16 116/75 98 04/12/16 11:18 97.8 F 93 16 126/82 100 04/12/16 08:10 98.5 F 88 16 115/75 98 Intake and Output 04/12/16 04/12/16 04/13/16 15:59 23:59 07:59 Intake Total 510 / 510 400 / 400 2000 / 2000 Output Total 600 / 600 1150 / 1150 Balance -90 / -90 400 / 400 850 / 850 Intake: IV Fluids 150 / 150 1100 / 1100 0.9 % Sodium Chloride 1, 1000 / 1000 000 ML @ 100 mls/hr IVC . Q10H [facility] Rx#:[id number] Ancef 2,000 MG In 100 / 100 Dextrose 5% 100 ML @ 200 mls/hr IVPB Q8HR [facility]BY Rx#: [id number] Levaquin 750mg/150 mL 750 150 / 150 mg In 150 ml @ 100 mls/ hr IVPB DAILY [facility]BY Rx#: [id number] Oral 360 / 360 400 / 400 900 / 900 Output: Urine 600 / 600 1150 / 1150 Other: Meal Lunch # Voids 1 # Urine Diapers 1 - Labs CBC & BMP: 04/12/16 08:03 04/12/16 08:03 Labs: Abnormal lab results WBC 21.5 K/mcL (4.3-11.1) H 04/12/16 08:03 RBC 2.96 M/mcL (3.82-4.97) L 04/12/16 08:03 Hgb 8.6 g/dL (11.5-15.4) L 04/12/16 08:03 Hct 26.1 % (35.3-44.9) L 04/12/16 08:03 RDW 15.5 % (11.5-14.5) H 04/12/16 08:03 Myelocytes % 2.0 % (0) H 04/12/16 08:03 Neutrophils # 18.5 K/mcL (1.6-8.9) H 04/12/16 08:03 Monocytes # 1.7 K/mcL (0.0-1.3) H 04/12/16 08:03 Nucleated RBCs/100 WBC 0.1 /100 WBC (0) H 04/12/16 08:03 Polychromasia 1+ (Not Present) A 04/12/16 08:03 Anisocytosis 1+ (Not Present) A 04/09/16 06:21 Macrocytosis Present (Not Present) A 04/09/16 06:21 ESR 122 mm/hr (0-15) H 04/10/16 04:30 Sodium 128 mEq/L (136-145) L 04/12/16 08:03 Chloride 97 mEq/L (98-109) L 04/12/16 08:03 Glucose 169 mg/dL (70-99) H 04/12/16 08:03 POC Glucose 117 (58-89) H 04/09/16 05:24 Calculated Osmolality 269 (280-300) L 04/12/16 08:03 Calcium 7.9 mg/dL (8.6-10.8) L 04/12/16 08:03 Total Bilirubin 2.6 mg/dL (0.2-1.2) H 04/07/16 20:16 AST 36 Units/L (5-34) H 04/07/16 20:16 Alkaline Phosphatase 235 Units/L (38-126) H 04/07/16 20:16 C-Reactive Protein 323 mg/L (Less than 5) H 04/10/16 04:30 Albumin 2.6 g/dL (3.5-5.0) L 04/07/16 20:16 Globulin 4.4 g/dL (2.4-3.5) H 04/07/16 20:16 Albumin/Globulin Ratio 0.6 (1.1-2.2) L 04/07/16 20:16 Vitamin B12 > 2000 pg/mL (213-816) H 04/08/16 06:50 Folate 4.7 ng/mL (7.0-31.4) L 04/08/16 06:50 Urine Color [place] (Yellow) A 04/07/16 22:10 Ur Specific [place] > 1.030 (1.010-1.025) H 04/07/16 22:10 Urine Protein 100 mg/dL (Neg-Trace) H 04/07/16 22:10 Urine Glucose (UA) 250 mg/dL (Normal) H 04/07/16 22:10 Urine Ketones Trace mg/dL (Negative) H 04/07/16 22:10 Urine Blood Trace (Negative) H 04/07/16 22:10 Urine Bilirubin Moderate (Negative) H 04/07/16 22:10 Ur Leukocyte Esterase Small (Negative) H 04/07/16 22:10 Urine Microscopic WBC 5-15 per hpf (0-3) H 04/07/16 22:10 Ur Squamous Epith Cells Many per lpf (None-Few) H 04/07/16 22:10 Ur Culture Indicated? YES (NO) A 04/07/16 22:10 Urine Opiates Screen Positive ng/mL (Aandqd=504) H 04/07/16 22:10 U Benzodiazepines Scrn Positive ng/mL (Dwnmoy=011) H 04/07/16 22:10 Staphylococcus sp PCR DETECTED (Not Detect) A 04/09/16 06:21 Staph aureus (PCR) DETECTED (Not Detect) A 04/09/16 06:21 Consult Discharge Plan - Plan Referrals: Marie Patel MD [Partnered Physician] - 04/15/16 10:00 am Swapnil Philippe DO [Primary Care Provider] - 07/07/16 2:00 pm Isidro Fairbanks DO [Partnered Physician] - 04/14/16 10:20 am Nancy Frank MD [Partnered Physician] - 04/10/16 10:15 am NO,PCP [Non-Partnered Physician] -
[2016-04-13 08:09] LABS: Hematocrit 25.2 % (35.3-44.9); Hemoglobin 8.6 g/dL (11.5-15.4); Mean Corpuscular HGB Conc 34.1 g/dL (31.6-35.5); Mean Corpuscular Hemoglobin 29.1 pg (28.0-33.3); Mean Corpuscular Volume 85.1 fL (83.0-100.0); Mean Platelet Volume 9.9 fL (9.4-12.4); Nucleated Red Blood Cells 0.1 /100 WBC (0); Platelet Count 487 K/mcL (140-400); Red Blood Count 2.96 M/mcL (3.82-4.97); Red Cell Distribution Width 14.8 % (11.5-14.5)
[2016-04-13 08:13] LABS: BUN/Creatinine Ratio 7 (6-26); Blood Urea Nitrogen 4 mg/dL (7-20); Calcium 8.4 mg/dL (8.6-10.8); Carbon Dioxide 27 mEq/L (19-29); Chloride 94 mEq/L (98-109); Glucose 141 mg/dL (70-99); Osmolality,Calculated 271 (280-300); Potassium 3.5 mEq/L (3.5-4.5); Sodium 131 mEq/L (136-145); eGFR For African Americans > 60 (> 60); eGFR For Non-African Americans > 60 (> 60)
[2016-04-13] MEDS: Sennosides/Docusate Sodium TABLET PO SCH ×2 (08:59→21:18)
[2016-04-13] MEDS: Folic Acid 1 MG TABLET PO SCH (08:59)
[2016-04-13] MEDS: ceFAZolin 2,000 MG in D5% in Water 100 ML IVPB SCH ×2 (09:00→18:28)
[2016-04-13] MEDS: Lactulose Oral Soln 20 GM/30 ML UDC PO SCH ×2 (09:01→21:19)
[2016-04-13] MEDS: Levofloxacin 750 MG/150 ML 750 MG/150 ML BAG IVPB SCH (09:02)
[2016-04-13] MEDS: Fluticasone Propionate Nasal 50 MCG/SPRAY BOTTLE NS SCH (09:02)
[2016-04-13 09:13] LABS: Lymphocytes # 2.9 K/mcL (0.6-4.6); Monocytes # 0.5 K/mcL (0.0-1.3); Neutrophils # 20.3 K/mcL (1.6-8.9)
[2016-04-13 09:14] LABS: Platelet Estimate Normal (Normal)
[2016-04-13 11:02] LABS: C-Reactive Protein 219 mg/L (Less than 5)
[2016-04-13] MEDS: *HR* HYDROcodone/Acet 5/325 mg TABLET PO PRN ×2 (11:45→18:29)
[2016-04-13 13:25] LABS: Acinetobacter baumannii by PCR Not Detected (Not Detect); Candida albicans by PCR Not Detected (Not Detect); Candida glabrata by PCR Not Detected (Not Detect); Candida krusei by PCR Not Detected (Not Detect); Candida parapsilosis by PCR Not Detected (Not Detect); Candida tropicalis by PCR Not Detected (Not Detect); Enterococcus by PCR Not Detected (Not Detect); Escherichia coli by PCR Not Detected (Not Detect); Klebsiella oxytoca by PCR Not Detected (Not Detect); Klebsiella pneumoniae by PCR Not Detected (Not Detect); Pseudomonas aeruginosa by PCR Not Detected (Not Detect); Serratia marcescens by PCR Not Detected (Not Detect); Streptococcus agalactiae(B)PCR Not Detected (Not Detect); Streptococcus by PCR Not Detected (Not Detect); Streptococcus pneumoniae PCR Not Detected (Not Detect); Streptococcus pyogenes (A) PCR Not Detected (Not Detect); mecA Methicillin-Resist Gene Not Detected (Not Detect)
[2016-04-13 13:26] LABS: Staphylococcus aureus by PCR ***DETECTED*** (Not Detect)
--- NOTE | 2016-04-13 16:25 | Internal Med Progress Note ---
Date of Encounter: 04/13/16 Time of Encounter: 15:45 - Assessment and plan (1) Hyponatremia Current Visit: Yes Status: Acute Assessment and plan: Hypoosmolar hyponatremia. Improving. Goal to correct not more than 10 mEq in 24 hours. Continue IV normal saline and monitor serum sodium closely. Hold hydrochlorothiazide for now. urine osmolality, serum osmolality and urine sodium noted to be normal. (2) Pneumonia Current Visit: Yes Status: Acute Assessment and plan: CT abdomen shows incidental finding of right lower lobe pneumonia. Continue IV Levaquin. Not requiring supplemental oxygen. Monitor vital signs closely. Serum lactic acid noted to be within normal limits. Qualifiers: Pneumonia type: due to unspecified organism Laterality: right Lung location: lower lobe of lung Qualified Code(s): J18.1 - Lobar pneumonia, unspecified organism (3) Discitis of lumbar region Current Visit: Yes Status: Acute Assessment and plan: Patient continues to have worsening leukocytosis and ESR. MRI lumbar spine is suggestive of epidural abscess/right psoas muscle abscess, spine surgery was consulted and patient underwent exploration of lumbar fusion, removal of hardware, drainage of abscess, laminectomy T12-L2, postoperative day 2. Still reports significant pain but otherwise doing well, able to participate in physical therapy. Patient requires long-term IV antibiotics. We will continue to monitor WBC, ESR, CRP; Continue IV antibiotics for MSSA bacteremia- cefazolin along with IV Levaquin. High risk for complications. Pain control with when necessary IV morphine and oral Percocet. Start lactulose along with senna/Colace/Dulcolax. (4) Gram-positive bacteremia Current Visit: Yes Status: Acute Assessment and plan: Initial blood cultures from 04/07, 2 out of 2 sets grew MSSA and patient's antibiotics have been changed to IV cefazolin. Repeat blood cultures from , 1 out of 2 sets grows MSSA. Repeat blood cultures from 04/11 morning are positive for gram-positive cocci. 2-D echocardiogram reviewed, shows no evidence of valvular abnormalities/vegetations. Patient underwent drainage of epidural spinal abscess on the evening of April 11, will wait for clearance of bacteremia from cultures that were sent today. Patient will require PICC line for long-term IV antibiotics, after clearance of bacteremia. (5) Acute encephalopathy Current Visit: Yes Status: Resolved (6) UTI (urinary tract infection) Current Visit: Yes Status: Ruled-out Qualifiers: Urinary tract infection type: site unspecified Hematuria presence: without hematuria Qualified Code(s): N39.0 - Urinary tract infection, site not specified (7) Essential hypertension Current Visit: Yes Status: Chronic (8) Anxiety Current Visit: Yes Status: Chronic (9) Depression Current Visit: Yes Status: Chronic Qualifiers: Depression Type: unspecified Qualified Code(s): F32.9 - Major depressive disorder, single episode, unspecified (10) Recurrent falls Current Visit: Yes Status: Chronic Assessment and plan: Physical therapy evaluation noted, patient is to be transferred to senior living facility for rehabilitation when medically stable. (11) Anemia Current Visit: Yes Status: Chronic Qualifiers: Anemia type: B12 deficiency Vitamin B12 deficiency anemia type: intrinsic factor deficiency Qualified Code(s): D51.0 - Vitamin B12 deficiency anemia due to intrinsic factor deficiency (12) B12 deficiency Current Visit: Yes Status: Chronic (13) Iron deficiency Current Visit: Yes Status: Chronic (14) Vitamin D deficiency Current Visit: Yes Status: Chronic - Subjective Interval history: Feels better but continues to have some low back pain. Able to participate in physical therapy. Continues to have poor appetite. No chest pain, shortness of breath, vomiting or abdominal pain. Had a bowel movement today. - Constitutional Vitals: Temp Pulse Resp BP Pulse Ox 98.4 F 98 18 163/97 96 04/13/16 15:19 04/13/16 15:19 04/13/16 15:19 04/13/16 15:19 04/13/16 15:19 General appearance: Present: A&O X 3, obese, answers questions appropriately - Respiratory Respiratory exam: Present: CTAB. Absent: accessory muscle use, rales, rhonchi, wheezes - Cardiovascular Cardiovascular exam: Present: RRR, +S1, +S2. Absent: diastolic murmur, gallop, rubs, systolic murmur - GI/Abdominal GI/Abdominal exam: Present: normal bowel sounds, soft, no peritoneal signs. Absent: distended, tenderness - Extremities Exam Extremities exam: Present: full ROM, warm, radial pulses palpable and symetrical. Absent: calf tenderness, cyanotic, pedal edema - Back Exam Back exam: Present: tenderness (Tenderness over surgical site in lumbar area) - Neurological Exam Neurological exam: Present: CN II-XII intact, oriented X3, no focal deficits, strengths equal and symetr throughout (Noted to have decreased strength in left upper extremity. 4/5 motor power in fingers, 3-4/5 power in biceps and triceps) . Absent: pronater drift, facial droop, speech deficit - Psychiatric Psychiatric exam: Present: depressed, flat affect - Skin Skin exam: Present: dry, intact Internal Medicine: Result - Labs CBC & Chem 7: 04/13/16 07:48 04/13/16 07:48 Labs: Short CBC 04/13/16 Range/Units 07:48 WBC 24.2 H (4.3-11.1) K/mcL Hgb 8.6 L (11.5-15.4) g/dL Hct 25.2 L (35.3-44.9) % Plt Count 487 H (140-400) K/mcL Neutrophils # 20.3 H (1.6-8.9) K/mcL BMP 04/13/16 07:48 Sodium 131 L Potassium 3.5 D Chloride 94 L Carbon Dioxide 27 BUN 4 L Creatinine 0.54 L Glucose 141 H Calcium 8.4 L - VTE Documentation of Mechanical Device: Intermittent pneumatic compression device Consult Discharge Plan - Plan Referrals: Marie Patel MD [Partnered Physician] - 04/15/16 10:00 am Swapnil Philippe DO [Primary Care Provider] - 07/07/16 2:00 pm Isidro Fairbanks DO [Partnered Physician] - 04/14/16 10:20 am Nancy Frank MD [Partnered Physician] - 04/10/16 10:15 am HOLDEN,PCP [Non-Partnered Physician] -
[2016-04-13] MEDS: Melatonin 3 MG TABLET PO SCH (21:18)
[2016-04-13] MEDS: ALPRAZolam 1 MG TABLET PO PRN (22:31)
[2016-04-14] MEDS: ceFAZolin 2,000 MG in D5% in Water 100 ML IVPB SCH ×3 (00:38→16:07)
[2016-04-14] MEDS: *HR* HYDROcodone/Acet 5/325 mg TABLET PO PRN (00:41)
[2016-04-14] MEDS: Acetaminophen 325 MG TABLET PO PRN ×2 (00:41→20:24)
[2016-04-14 02:52] LABS: Hemoglobin 7.2 g/dL (11.5-15.4); Mean Corpuscular HGB Conc 32.7 g/dL (31.6-35.5); Mean Corpuscular Hemoglobin 28.3 pg (28.0-33.3); Mean Corpuscular Volume 86.6 fL (83.0-100.0); Mean Platelet Volume 9.4 fL (9.4-12.4); Platelet Count 493 K/mcL (140-400); Red Blood Count 2.54 M/mcL (3.82-4.97)
[2016-04-14 03:17] LABS: BUN/Creatinine Ratio 7 (6-26); Calcium 7.8 mg/dL (8.6-10.8); Carbon Dioxide 25 mEq/L (19-29); Chloride 98 mEq/L (98-109); Glucose 134 mg/dL (70-99); Osmolality,Calculated 273 (280-300); Potassium 3.2 mEq/L (3.5-4.5); Sodium 132 mEq/L (136-145); eGFR For African Americans > 60 (> 60); eGFR For Non-African Americans > 60 (> 60)
[2016-04-14 03:18] LABS: Blood Urea Nitrogen 4 mg/dL (7-20); C-Reactive Protein 213 mg/L (Less than 5)
[2016-04-14 03:39] LABS: Lymphocytes # 3.8 K/mcL (0.6-4.6); Monocytes # 0.4 K/mcL (0.0-1.3); Neutrophils # 14.4 K/mcL (1.6-8.9)
[2016-04-14 03:40] LABS: Platelet Estimate Increased (Normal); Reactive Lymphocytes Present (Not Present)
[2016-04-14] MEDS: 0.9 % Sodium Chloride 1,000 ML IVC SCH (04:20)
[2016-04-14] MEDS: *HR* Morphine 2 MG/ML SYRINGE IVP PRN ×4 (06:25→20:14)
[2016-04-14] MEDS: *HR* Heparin 5,000 UNIT/ML VIAL SQ SCH ×2 (06:59→18:51)
[2016-04-14] MEDS ORDERED: tiZANidine 4 MG TABLET PO PRN (09:52)
[2016-04-14] MEDS: Folic Acid 1 MG TABLET PO SCH (10:29)
[2016-04-14] MEDS: Sennosides/Docusate Sodium TABLET PO SCH ×2 (10:30→20:24)
[2016-04-14] MEDS: Fluticasone Propionate Nasal 50 MCG/SPRAY BOTTLE NS SCH (10:32)
[2016-04-14] MEDS: Lactulose Oral Soln 20 GM/30 ML UDC PO SCH ×2 (10:40→20:15)
[2016-04-14] MEDS: Levofloxacin 750 MG/150 ML 750 MG/150 ML BAG IVPB SCH (11:00)
--- NOTE | 2016-04-14 11:04 | Infectious Disease Consult ---
Date of Encounter: 04/14/16 Time of Encounter: 10:52 Assessment and Plan (1) Sepsis Status: Acute Assessment and plan: Patient had two sepsis criteria. Likely secondary to bacteremia, discitis/OM, and epidural abscess. The patient continues to have leukocytosis despite adequate antibiotic coverage - concern for uncontrolled source. Blood cultures drawn 04/07/16 were positive 2/2 sets for MSSA. Additonal blood culture drawn 04/09/16 was positive 1/1 set, as well as blood culture drawn 04/11 was positive 1/1 set. Blood cultures drawn 04/13/16 are pending x 2 sets. Qualifiers: Sepsis type: methicillin susceptible Staphylococcus aureus Qualified Code(s ): A41.01 - Sepsis due to Methicillin susceptible Staphylococcus aureus (2) Gram-positive bacteremia Status: Acute Assessment and plan: Causative organism MSSA. Source unclear: Epidural abscess vs. psoas muscle abscess vs. other with seeding of the back. No evidence of skin/soft tissue infection. No chronic indwelling lines. No recent surgical procedures. Blood culture results: 04/07/16 positive 2/2 sets; 04/09/16 positive 1/1 set; 04/11 positive 1/1 set; 04/13/16 pending x 2 sets. Complicated due to presence of hardware in the left ankle. TTE completed 04/10/16 showed no valvular disease. Due to the persistence of the bacteremia, recommend DEVON to rule out IE. The patient has one major and one minor Modified Del Castillo's Criteria. CT of the abdomen and pelvis 04/10/16 showed findings consistent with OM/ discitis at L2-L3. MRI of the L-spine 04/10/16 showed right psoas muscle mass, abscess vs. hematoma and possible epidural abscess. Status post laminectomy with removal of the hardware 04/11/[address] Woo. Operative report reviewed. Unclear if there was epidural abscess that was evacuated. No intra-operative cultures pending. Will discuss with Dr. Woo. May need to evaluate the psoas muscle mass further. This could be an uncontrolled source of the patient's bacteremia. May need to consider IR consult to drain if not done during surgery. Continue Cefazolin 2 grams IV Q8H. Await repeat culture results. Monitor renal function and dose-adjust antibiotics. Duration of treatment depends on the clinical picture, but likely at least 6 weeks of IV antibiotics based on the presence of discitis. Await negative blood cultures before inserting PICC line. Okay to discontinue contact precautions - not MRSA. (3) Discitis of lumbar region Status: Acute Assessment and plan: Noted on CT of the A/P at L2-L3. Causative organism likely MSSA based on blood culture results. Continue antibiotics as above. (4) Epidural abscess Status: Acute Assessment and plan: Noted on MRI of the L-spine. (5) Pneumonia Status: Acute Assessment and plan: Causative organism unclear. Patient appears asymptomatic. Has been on Levaquin for 5 days. Continue Levaquin to complete a 7 day course. Consider switching to PO. Qualifiers: Pneumonia type: due to unspecified organism Laterality: right Lung location: lower lobe of lung Qualified Code(s): J18.1 - Lobar pneumonia, unspecified organism (6) Mass of psoas muscle Status: Acute Assessment and plan: Etiology unclear: abscess vs. hematoma. Could be uncontrolled source of the patient's persistent bacteremia. Consider IR consult to drain and send for culture. (7) Weakness of left upper extremity Status: Acute Assessment and plan: Etiology unclear. MRI of the cervical spine completed this morning and is pending. (8) Altered mental status Status: Acute Assessment and plan: Likely secondary to sepsis. Improved. Qualifiers: Altered mental status type: disorientation Qualified Code(s): R41.0 - Disorientation, unspecified (9) Hypokalemia Status: Acute (10) Hyponatremia Status: Acute (11) Anemia Status: Chronic Assessment and plan: Hemoglobin down to 7.2 this morning. Management per the primary team. 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 Infectious Disease HPI - Data of Consult Patient: new to practice Consult date: 04/14/16 Requesting Physician: Hattie Regan MD Primary Care Provider: Swapnil Philippe DO - Consult Narrative Reason for consult: Persistent Bacteremia History of present illness: Ms. Menon is a 55 year old female with a past medical history of fibromyalgia, arthritis, GERD, hypertension, status post lumbar fusion 8 years ago. The patient was admitted to the hospital April 07, 2016 for altered mental status. We are consulted every 2016 for further evaluation and treatment recommendations regarding persistent bacteremia. The patient's 55-year-old female with past medical history as stated above. Patient states that she's been experiencing severe lower back pain for the past 2 weeks. On the day of admission, she presented to the emergency department with her brother stated she was confused. Upon arrival, she was afebrile but she was mildly tachycardic. Her blood pressure was within normal limits. Laboratory studies revealed a white blood cell count 16,000 and neutrophil predominance. Basic metabolic panel significant for hyponatremia. Urinalysis was obtained and appears contaminated. Blood cultures were obtained 2 sets. The patient was started empirically on IV Rocephin for possible UTI. She underwent CT of the cervical spine, thoracic spine, and lumbar spine, which were all negative for acute findings. CTA of the head and neck was negative as well. CT of the chest showed a hiatal hernia, but no acute findings. The patient was admitted to the hospital for further evaluation and treatment. Since admission, the patient's leukocytosis has continued to worsen. Cultures drawn on admission came back +2 out of 2 sets for MSSA. The patient's undergone a brain MRI which was essentially negative. Grotta Dopplers showed 60-79% stenosis in the left carotid artery. Blood cultures drawn every positive one out of one set for MSSA. He did complain of severe back pain and underwent a CT the abdomen and pelvis that showed discitis/osteomy myelitis at L2 and L3 as well as a possible right lower lobe pneumonia. Her spine MRI was ordered that showed a right psoas mass, questionable for abscess versus hematoma and a possible epidural abscess. Dr. Woo was consulted and took the patient to the operating room on April 11 where she underwent a laminectomy and hardware removal. Operative report has been reviewed. Liquid culture drawn April 11 came back positive one out of one set for MSSA. 21,000 arrival the C -spine was ordered this morning and is pending. ESR continues to remarkably high at 99. Additional blood cultures were drawn on April 13 are currently pending. Currently, the patient is on IV cefazolin. We've been asked to evaluate and make further recommendations. My exam today, the patient appears to be in pain. She will reports some chills at home, but denies fevers or rigors. She denies any headache, congestion, earache, or sore throat. She denies any chest pain, shortness of breath, or cough currently. She reports chronic pain secondary to her fibromyalgia. She also reports some new pain and weakness to the left upper extremity. She denies any neck pain, blurred vision, dizziness. She denies any nausea, vomiting, diarrhea, constipation. She denies abdominal pain or appetite changes. She reports severe pain to the lower back. She is able to move all her extremities 4. She denies any sensory changes to her distal extremities. She does report some recent falls, but denies any known injury. His any recent cuts, abrasions, or skin or soft tissue infections. She denies oral thrush. Surgical history reviewed. The patient does have hardware in the left ankle. She also had previously had a lumbar fusion, but the hardware was removed during the most recent surgery. She denies any issues with infection with the placement of the lumbar hardware. The patient lives at home alone. She is retired. She denies recent travel. CC: Hattie Regan MD Past Med Surg Social Fam HX - Past Medical History Attestation: Yes The following information was validated with the patient. Source: patient, old records reviewed, nursing notes reviewed Medical history: arthritis, fibromyalgia, GERD, hypertension, other (hiatal hernia) Psychiatric history: anxiety, depression - Past Surgical History Surgical History: hysterectomy, orthopedic, other (Left ankle ORIF 3 years ago, lumbr fusion 8 years ago) - Social History Smoking Status: Never smoker Smokeless Tobacco Status: No Alcohol use: none Drug use: none - Family History Mother Living Status: Still Living Hx Family Cancer: Yes (breast cancer) Father Age: 63 Living Status: Hx Family Cardiac Disorders: Yes Infectious Disease-CN:Meds Pantoprazole Sodium [Protonix] 40 mg PO BID 03/15/15 [History] Tizanidine HCl [Zanaflex] 4 mg PO BID PRN 03/15/15 [History] Alprazolam [Xanax 1 MG Tablet] 1 mg PO BID 09/19/15 [History] Bupropion HCl [Wellbutrin Xl] 300 mg PO DAILY 09/19/15 [History] Carvedilol [Coreg] 25 mg PO BID 09/19/15 [History] Duloxetine HCl [Cymbalta] 30 mg PO DAILY 09/19/15 [History] Meloxicam 15 mg PO DAILY 09/19/15 [History] SUMAtriptan Succinate [Imitrex] 100 mg PO PRN PRN 09/19/15 [History] Amlodipine Besylate 10 mg PO DAILY 10/09/15 [History] Fluticasone Propionate Nasal [Flonase] 1 spray NS DAILY 10/09/15 [History] Hydrochlorothiazide 25 mg PO DAILY 10/09/15 [History] Lactulose 15 ml PO BID 10/09/15 [History] Losartan Potassium [Cozaar] 50 mg PO DAILY 10/09/15 [History] Cyanocobalamin (B-12) [Vitamin B12] 1,000 mcg PO DAILY #90 tablet 10/25/15 [Rx] Cholecalciferol (Vitamin D3) [Vitamin D] 1,000 unit PO DAILY #90 capsule [Rx] HYDROcodone/Acet 5/325 mg [[place] 5-325 mg] 1 tab PO Q6HR PRN #10 tablet [Rx] Allergies Sulfa (Sulfonamide Antibiotics) Allergy (Verified 04/08/16 14:31) Rash All systems: reviewed and no additional remarkable complaints except as stated Exam - Constitutional Vitals: Temp Pulse Resp BP Pulse Ox 98.7 F 95 16 153/88 97 04/14/16 06:58 04/14/16 06:58 04/14/16 06:58 04/14/16 06:58 04/14/16 06:58 General appearance: cooperative, mild distress, obese - Head Head exam: Present: atraumatic, normal inspection, normocephalic - Eye Eye exam: Present: EOMI, normal appearance, PERRL Pupils: Present: normal accommodation Additional comments: No subconjunctival hemorrhage noted - ENT ENT exam: Present: mucous membranes moist Additional comments: No thrush noted - Neck Neck exam: Present: normal inspection. Absent: lymphadenopathy, tenderness - Respiratory Respiratory exam: Present: CTAB. Absent: rales, respiratory distress, rhonchi, wheezes - Cardiovascular Cardiovascular exam: Present: RRR, +S1, +S2 - GI/Abdominal GI/Abdominal exam: Present: distended (obese), normal bowel sounds, soft. Absent: tenderness - Extremities Exam Extremities exam: Absent: joint swelling, pedal edema, tenderness Additional comments: No endocarditis stigmata noted. - Back Exam Back exam: Present: vertebral tenderness (Mid-thoracic and lumbar area.) Additional comments: Surgical incision covered by sterile dressing. Tenderness noted with palpation surrounding the surgical site. Dressing not removed. No drainage noted on the dressing - Neurological Exam Neurological exam: Present: alert, oriented X3, no focal deficits. Absent: strengths equal and symetr throughout (.) - Psychiatric Psychiatric exam: Present: normal affect, normal mood - Skin Skin exam: Present: dry, intact, normal color, warm Infectious Disease CN: Results - Labs CBC & Chem 7: 04/14/16 02:34 04/14/16 02:34 Cultures: Cultures 04/09/16 06:21 Blood Culture - Final Peripheral Venipuncture Staphylococcus aureus 04/11/16 06:31 Blood Culture - Preliminary Peripheral Venipuncture Gram Positive Cocci Cultures 04/09/16 06:21 Blood Culture - Final Peripheral Venipuncture Staphylococcus aureus 04/11/16 06:31 Blood Culture - Preliminary Peripheral Venipuncture Gram Positive Cocci 04/07/16 21:15 Blood Culture - Final Peripheral Venipuncture Staphylococcus aureus 04/07/16 21:16 Blood Culture - Final Peripheral Venipuncture Staphylococcus aureus 04/07/16 22:10 Urine Culture - Final Urine,Clean Catch Culture is grossly mixed, unable to properly interpret. Please repeat if indicated. Serology 04/13/16 04/11/16 04/09/16 Range/Units 03:40 06:31 06:21 Urine Color (Yellow) Urine Clarity (Clear) Urine pH (5.0-8.0) pH Units Ur Specific [place] (1.010-1.025) Urine Protein (Neg-Trace) mg/dL Urine Glucose (UA) (Normal) mg/dL Urine Ketones (Negative) mg/dL Urine Blood (Negative) Urine Nitrite (Negative) Urine Bilirubin (Negative) Urine Urobilinogen (Normal) mg/dL Ur Leukocyte Esterase (Negative) Urine Microscopic RBC (0-3) per hpf Urine Microscopic WBC (0-3) per hpf Ur Squamous Epith Cells (None-Few) per lpf Amorphous Sediment (Few) Urine Bacteria (None-Few) per hpf Hyaline Casts (None-Few) per lpf Ur Culture Indicated? (NO) Urine Osmolality 421 (300-1090) mOsm/kg Urine Sodium 122.0 mEq/L A. baumannii (TEM-PCR) Not Detected Not Detected (Not Detect) More albicans (PCR) Not Detected Not Detected (Not Detect) C. glabrata (PCR) Not Detected Not Detected (Not Detect) C. krusei (PCR) Not Detected Not Detected (Not Detect) C. parapsilosis (PCR) Not Detected Not Detected (Not Detect) C. tropicalis (PCR) Not Detected Not Detected (Not Detect) Enterobacteriac sp PCR Not Detected Not Detected (Not Detect) E. cloacae complex PCR Not Detected Not Detected (Not Detect) Enterococcus sp PCR Not Detected Not Detected (Not Detect) E. coli (PCR) Not Detected Not Detected (Not Detect) H. influenzae DNA Not Detected Not Detected (Not Detect) Klebsiella oxytoca PCR Not Detected Not Detected (Not Detect) Klebsiella pneumoniae Not Detected Not Detected (Not Detect) Listeria (PCR) Not Detected Not Detected (Not Detect) N. meningitidis (PCR) Not Detected Not Detected (Not Detect) Proteus species (PCR) Not Detected Not Detected (Not Detect) Serratia marcescens PCR Not Detected Not Detected (Not Detect) Staphylococcus sp PCR DETECTED A DETECTED A (Not Detect) Staph aureus (PCR) DETECTED A DETECTED A (Not Detect) MRS (TEM-PCR) Not Detected Not Detected (Not Detect) Streptococcus sp PCR Not Detected Not Detected (Not Detect) Group A Strep DNA Not Detected Not Detected (Not Detect) Group B Strep (PCR) Not Detected Not Detected (Not Detect) Strep pneumoniae (PCR) Not Detected Not Detected (Not Detect) P. aeruginosa (TEM-PCR) Not Detected Not Detected (Not Detect) VRE (PCR) N/A N/A (Not Detect) KPC (blaKPC) Detect PCR N/A N/A (Not Detect) 04/07/16 04/07/16 Range/Units 22:10 21:16 Urine Color [place] A (Yellow) Urine Clarity Clear (Clear) Urine pH 6.0 (5.0-8.0) pH Units Ur Specific [place] > 1.030 H (1.010-1.025) Urine Protein 100 H (Neg-Trace) mg/dL Urine Glucose (UA) 250 H (Normal) mg/dL Urine Ketones Trace H (Negative) mg/dL Urine Blood Trace H (Negative) Urine Nitrite Negative (Negative) Urine Bilirubin Moderate H (Negative) Urine Urobilinogen Normal (Normal) mg/dL Ur Leukocyte Esterase Small H (Negative) Urine Microscopic RBC 0-3 (0-3) per hpf Urine Microscopic WBC 5-15 H (0-3) per hpf Ur Squamous Epith Cells Many H (None-Few) per lpf Amorphous Sediment Few (Few) Urine Bacteria Few (None-Few) per hpf Hyaline Casts None Seen (None-Few) per lpf Ur Culture Indicated? YES A (NO) Urine Osmolality (300-1090) mOsm/kg Urine Sodium mEq/L A. baumannii (TEM-PCR) Not Detected (Not Detect) More albicans (PCR) Not Detected (Not Detect) C. glabrata (PCR) Not Detected (Not Detect) C. krusei (PCR) Not Detected (Not Detect) C. parapsilosis (PCR) Not Detected (Not Detect) C. tropicalis (PCR) Not Detected (Not Detect) Enterobacteriac sp PCR Not Detected (Not Detect) E. cloacae complex PCR Not Detected (Not Detect) Enterococcus sp PCR Not Detected (Not Detect) E. coli (PCR) Not Detected (Not Detect) H. influenzae DNA Not Detected (Not Detect) Klebsiella oxytoca PCR Not Detected (Not Detect) Klebsiella pneumoniae Not Detected (Not Detect) Listeria (PCR) Not Detected (Not Detect) N. meningitidis (PCR) Not Detected (Not Detect) Proteus species (PCR) Not Detected (Not Detect) Serratia marcescens PCR Not Detected (Not Detect) Staphylococcus sp PCR DETECTED A (Not Detect) Staph aureus (PCR) DETECTED A (Not Detect) MRS (TEM-PCR) Not Detected (Not Detect) Streptococcus sp PCR Not Detected (Not Detect) Group A Strep DNA Not Detected (Not Detect) Group B Strep (PCR) Not Detected (Not Detect) Strep pneumoniae (PCR) Not Detected (Not Detect) P. aeruginosa (TEM-PCR) Not Detected (Not Detect) VRE (PCR) Not Detected (Not Detect) KPC (blaKPC) Detect PCR Not Detected (Not Detect) Serology: Serology 04/13/16 04/11/16 04/09/16 Range/Units 03:40 06:31 06:21 Urine Osmolality 421 (300-1090) mOsm/kg Urine Sodium 122.0 mEq/L A. baumannii (TEM-PCR) Not Detected Not Detected (Not Detect) More albicans (PCR) Not Detected Not Detected (Not Detect) C. glabrata (PCR) Not Detected Not Detected (Not Detect) C. krusei (PCR) Not Detected Not Detected (Not Detect) C. parapsilosis (PCR) Not Detected Not Detected (Not Detect) C. tropicalis (PCR) Not Detected Not Detected (Not Detect) Enterobacteriac sp PCR Not Detected Not Detected (Not Detect) E. cloacae complex PCR Not Detected Not Detected (Not Detect) Enterococcus sp PCR Not Detected Not Detected (Not Detect) E. coli (PCR) Not Detected Not Detected (Not Detect) H. influenzae DNA Not Detected Not Detected (Not Detect) Klebsiella oxytoca PCR Not Detected Not Detected (Not Detect) Klebsiella pneumoniae Not Detected Not Detected (Not Detect) Listeria (PCR) Not Detected Not Detected (Not Detect) N. meningitidis (PCR) Not Detected Not Detected (Not Detect) Proteus species (PCR) Not Detected Not Detected (Not Detect) Serratia marcescens PCR Not Detected Not Detected (Not Detect) Staphylococcus sp PCR DETECTED A DETECTED A (Not Detect) Staph aureus (PCR) DETECTED A DETECTED A (Not Detect) MRS (TEM-PCR) Not Detected Not Detected (Not Detect) Streptococcus sp PCR Not Detected Not Detected (Not Detect) Group A Strep DNA Not Detected Not Detected (Not Detect) Group B Strep (PCR) Not Detected Not Detected (Not Detect) Strep pneumoniae (PCR) Not Detected Not Detected (Not Detect) P. aeruginosa (TEM-PCR) Not Detected Not Detected (Not Detect) VRE (PCR) N/A N/A (Not Detect) KPC (blaKPC) Detect PCR N/A N/A (Not Detect) - VTE Documentation of Mechanical Device: Intermittent pneumatic compression device Consult Discharge Plan - Plan Referrals: Marie Patel MD [Partnered Physician] - 04/15/16 10:00 am Swapnil Philippe DO [Primary Care Provider] - 07/07/16 2:00 pm Isidro Fairbanks DO [Partnered Physician] - 04/14/16 10:20 am Nancy Frank MD [Partnered Physician] - 04/10/16 10:15 am HOLDENPCP [Non-Partnered Physician] -
--- NOTE | 2016-04-14 13:17 | Spine Progress Note ---
Date of Encounter: 04/14/16 Time of Encounter: 13:12 - Assessment and Plan (1) History of lumbar fusion Current Visit: Yes Status: Chronic (2) Epidural abscess Current Visit: Yes Status: Acute Subjective Principal diagnosis: epidural abcess, bacteremia, UTI, history of spinal fusion Interval history: The patient planes of back pain and some left upper extremity weakness. Incision is clean dry and intact. She fires ower extremity motor groups MRI of the cervical spine done today reveals a posterior based epidural fluid collection consistent with possible abscess from C3-T3. She has had areas of stenosis most notable at C5-6. Her persistent bacteremia and elevated white count and very concerning MRI findings I recommended transfer to a tertiary care center in [place]. This would include infectious disease support and neurosurgical/spinal surgical support. Patient is aware that if she is likely to undergo another surgical decompression and evacuation type procedure. Discussed the case with Keena Looney of infectious disease as well as the attending hospitalist who are able to the plan. Objective Vital signs: Vital Signs Temp Pulse Resp BP Pulse Ox 04/14/16 11:55 99.3 F 112 16 146/82 95 04/14/16 07:45 98.4 F 95 157/91 98 04/14/16 06:58 98.7 F 95 16 153/88 97 04/14/16 06:37 123 96/64 04/14/16 04:31 98.3 F 96 18 118/74 99 04/14/16 00:40 99.3 F 104 16 116/74 99 04/13/16 20:27 99.3 F 103 18 133/80 96 04/13/16 15:19 98.4 F 98 18 163/97 96 04/13/16 14:39 98.9 F 95 17 149/83 97 Intake and Output 04/13/16 04/14/16 04/14/16 23:59 07:59 15:59 Intake Total 1650 / 1650 1650 / 1650 490 / 490 Output Total 900 / 900 350 / 350 600 / 600 Balance 750 / 750 1300 / 1300 -110 / -110 Intake: IV Fluids 1100 / 1100 1100 / 1100 250 / 250 0.9 % Sodium Chloride 1, 1000 / 1000 1000 / 1000 000 ML @ 100 mls/hr IVC . Q10H [facility] Rx#:[id number] Ancef 2,000 MG In 100 / 100 100 / 100 100 / 100 Dextrose 5% 100 ML @ 200 mls/hr IVPB Q8HR [facility]BY Rx#: [id number] Levaquin 750mg/150 mL 750 150 / 150 mg In 150 ml @ 100 mls/ hr IVPB DAILY [facility]BY Rx#: [id number] Oral 550 / 550 550 / 550 240 / 240 Output: Urine 900 / 900 350 / 350 600 / 600 Other: Meal Breakfast Percent of Meal Consumed 50% # Voids 1 - Labs CBC & BMP: 04/14/16 02:34 04/14/16 02:34 Labs: Abnormal lab results WBC 21.1 K/mcL (4.3-11.1) H 04/14/16 02:34 RBC 2.54 M/mcL (3.82-4.97) L 04/14/16 02:34 Hgb 7.2 g/dL (11.5-15.4) L 04/14/16 02:34 Hct 22.0 % (35.3-44.9) L 04/14/16 02:34 RDW 15.0 % (11.5-14.5) H 04/14/16 02:34 Plt Count 493 K/mcL (140-400) H 04/14/16 02:34 Metamyelocytes % 8.0 % (0) H 04/14/16 02:34 Myelocytes % 4.0 % (0) H 04/14/16 02:34 Neutrophils # 14.4 K/mcL (1.6-8.9) H 04/14/16 02:34 Nucleated RBCs/100 WBC 0.1 /100 WBC (0) H 04/13/16 07:48 Reactive Lymphocytes Present (Not Present) A 04/14/16 02:34 Platelet Estimate Increased (Normal) H 04/14/16 02:34 Polychromasia 1+ (Not Present) A 04/12/16 08:03 Anisocytosis 1+ (Not Present) A 04/09/16 06:21 Macrocytosis Present (Not Present) A 04/09/16 06:21 ESR 99 mm/hr (0-15) H 04/14/16 02:34 Sodium 132 mEq/L (136-145) L 04/14/16 02:34 Potassium 3.2 mEq/L (3.5-4.5) L 04/14/16 02:34 BUN 4 mg/dL (7-20) L 04/14/16 02:34 Glucose 134 mg/dL (70-99) H 04/14/16 02:34 POC Glucose 117 (58-89) H 04/09/16 05:24 Serum Osmolality 272 mOsm/kg (280-300) L 04/13/16 07:48 Calculated Osmolality 273 (280-300) L 04/14/16 02:34 Calcium 7.8 mg/dL (8.6-10.8) L 04/14/16 02:34 Total Bilirubin 2.6 mg/dL (0.2-1.2) H 04/07/16 20:16 AST 36 Units/L (5-34) H 04/07/16 20:16 Alkaline Phosphatase 235 Units/L (38-126) H 04/07/16 20:16 C-Reactive Protein 213 mg/L (Less than 5) H 04/14/16 02:34 Albumin 2.6 g/dL (3.5-5.0) L 04/07/16 20:16 Globulin 4.4 g/dL (2.4-3.5) H 04/07/16 20:16 Albumin/Globulin Ratio 0.6 (1.1-2.2) L 04/07/16 20:16 Vitamin B12 > 2000 pg/mL (213-816) H 04/08/16 06:50 Folate 4.7 ng/mL (7.0-31.4) L 04/08/16 06:50 Urine Color [place] (Yellow) A 04/07/16 22:10 Ur Specific [place] > 1.030 (1.010-1.025) H 04/07/16 22:10 Urine Protein 100 mg/dL (Neg-Trace) H 04/07/16 22:10 Urine Glucose (UA) 250 mg/dL (Normal) H 04/07/16 22:10 Urine Ketones Trace mg/dL (Negative) H 04/07/16 22:10 Urine Blood Trace (Negative) H 04/07/16 22:10 Urine Bilirubin Moderate (Negative) H 04/07/16 22:10 Ur Leukocyte Esterase Small (Negative) H 04/07/16 22:10 Urine Microscopic WBC 5-15 per hpf (0-3) H 04/07/16 22:10 Ur Squamous Epith Cells Many per lpf (None-Few) H 04/07/16 22:10 Ur Culture Indicated? YES (NO) A 04/07/16 22:10 Urine Opiates Screen Positive ng/mL ([id number]) H 04/07/16 22:10 U Benzodiazepines Scrn Positive ng/mL (Hrfxpu=[id number]) H 04/07/16 22:10 Staphylococcus sp PCR DETECTED (Not Detect) A 04/11/16 06:31 Staph aureus (PCR) DETECTED (Not Detect) A 04/11/16 06:31 Consult Discharge Plan - Plan Referrals: Marie Patel MD [Partnered Physician] - 04/15/16 10:00 am Swapnil Philippe DO [Primary Care Provider] - 07/07/16 2:00 pm Isidro Fairbanks DO [Partnered Physician] - 04/14/16 10:20 am Nancy Frank MD [Partnered Physician] - 04/10/16 10:15 am HOLDEN,PCP [Non-Partnered Physician] -
[2016-04-14] MEDS ORDERED: Mag Hydrox/Al Hydrox/Simeth 30 ML UDC PO PRN (13:53)
[2016-04-14] MEDS ORDERED: Pantoprazole 40 MG VIAL IVP ONE (13:53)
--- NOTE | 2016-04-14 14:01 | Discharge Summary ---
Date of Encounter: 04/14/16 Time of Encounter: 13:59 - Discharge Diagnosis (1) Spinal epidural abscess Priority: Primary Status: Acute (2) Hyponatremia Priority: Primary Status: Acute (3) Pneumonia Priority: Primary Status: Acute Qualifiers: Pneumonia type: due to unspecified organism Laterality: right Lung location: lower lobe of lung Qualified Code(s): J18.1 - Lobar pneumonia, unspecified organism (4) Discitis of lumbar region Priority: Primary Status: Acute (5) Gram-positive bacteremia Priority: Primary Status: Acute (6) Acute encephalopathy Priority: Primary Status: Resolved (7) UTI (urinary tract infection) Priority: Primary Status: Ruled-out Qualifiers: Urinary tract infection type: site unspecified Hematuria presence: without hematuria Qualified Code(s): N39.0 - Urinary tract infection, site not specified (8) Essential hypertension Priority: Secondary Status: Chronic (9) Anxiety Priority: Secondary Status: Chronic (10) Depression Priority: Secondary Status: Chronic Qualifiers: Depression Type: unspecified Qualified Code(s): F32.9 - Major depressive disorder, single episode, unspecified (11) Recurrent falls Priority: Primary Status: Chronic (12) Anemia Priority: Secondary Status: Chronic Qualifiers: Anemia type: B12 deficiency Vitamin B12 deficiency anemia type: intrinsic factor deficiency Qualified Code(s): D51.0 - Vitamin B12 deficiency anemia due to intrinsic factor deficiency (13) B12 deficiency Priority: Secondary Status: Chronic (14) Iron deficiency Priority: Secondary Status: Chronic (15) Vitamin D deficiency Priority: Secondary Status: Chronic - Discharge Medications Home Medications: Pantoprazole Sodium [Protonix] 40 mg PO BID 03/15/15 [History] Tizanidine HCl [Zanaflex] 4 mg PO BID PRN 03/15/15 [History] Alprazolam [Xanax 1 MG Tablet] 1 mg PO BID 09/19/15 [History] Bupropion HCl [Wellbutrin Xl] 300 mg PO DAILY 09/19/15 [History] Carvedilol [Coreg] 25 mg PO BID 09/19/15 [History] Duloxetine HCl [Cymbalta] 30 mg PO DAILY 09/19/15 [History] Meloxicam 15 mg PO DAILY 09/19/15 [History] SUMAtriptan Succinate [Imitrex] 100 mg PO PRN PRN 09/19/15 [History] Amlodipine Besylate 10 mg PO DAILY 10/09/15 [History] Fluticasone Propionate Nasal [Flonase] 1 spray NS DAILY 10/09/15 [History] Hydrochlorothiazide 25 mg PO DAILY 10/09/15 [History] Lactulose 15 ml PO BID 10/09/15 [History] Losartan Potassium [Cozaar] 50 mg PO DAILY 10/09/15 [History] Cyanocobalamin (B-12) [Vitamin B12] 1,000 mcg PO DAILY #90 tablet 10/25/15 [Rx] Cholecalciferol (Vitamin D3) [Vitamin D] 1,000 unit PO DAILY #90 capsule [Rx] HYDROcodone/Acet 5/325 mg [[place] 5-325 mg] 1 tab PO Q6HR PRN #10 tablet [Rx] Allergies/Adverse Reactions: Allergies Sulfa (Sulfonamide Antibiotics) Allergy (Verified 04/08/16 14:31) Rash Procedures/tests Complete & Pending: Procedures Performed prior 72 hours Category Date Time Status MR cervical spine wo con [MR] Routine MRI 04/14/16 09:30 Completed Date of admission: 04/08/16 04:19 Primary care physician: Swapnil Philippe DO Consults: 04/12/16 09:12 Consult to Occupational Therapy [CONS] Routine Comment: Evaluate, develop and implement POC Consult to Physical Therapy [CONS] Routine Comment: Evaluate, develop and implement POC 04/14/16 08:17 Consult to Infectious Diseases [CONS] Routine Consulting Provider: Infectious Disease Kanika Reason for Consult: Spinal abscess, bacteremia Call Completed: Yes Discharging clinician: Hattie Regan Anticipated date of discharge: 04/14/16 - Patient Status Disposition: Transfer Critical Access Hosp Condition: Fair Functional capacity at discharge: bed bound Overall status at discharge: patient is not back to baseline - Discharge Instructions Follow Up With: Marie Patel MD [Partnered Physician] - 04/15/16 10:00 am Swapnil Philippe DO [Primary Care Provider] - 07/07/16 2:00 pm Isidro Fairbanks DO [Partnered Physician] - 04/14/16 10:20 am Nancy Frank MD [Partnered Physician] - 04/10/16 10:15 am NO,PCP [Non-Partnered Physician] - Forms: ED Satisfaction Letter - Diet and Activity Activity: as per physical therapy Diet: low fat, low cholesterol, low salt diet Hospital course: Ms. Menon is a 55 year old female who is admitted with altered mental status, left upper extremity weakness and low back pain. Patient was lethargic and confused at the time of admission and proper history could not be obtained. She was initially worked up for acute stroke including CT head, MRI brain which showed no evidence of acute CVA. She was started on pain control with IV narcotic pain medications. Initial labs done in the emergency room showed mild leukocytosis and urine dipstick was suggestive of UTI, so she was started on IV Rocephin. Her leukocytosis slowly started getting worse and 3 sets of blood cultures so far grow methicillin sensitive staph aureus. Urine culture showed no significant growth and her antibiotics were changed to cefazolin. Patient started to complain of severe acute on chronic back pain, that has been difficult to control with pain medications. Given her persistently positive blood cultures, CT abdomen/pelvis was done to check for source of infection, which showed possible spinal abscess. MRI lumbar spine was done which showed epidural abscess in the lower thoracic spine, extending into upper lumbar spine. Spine surgery was consulted and patient underwent removal of hardware, irrigation and drainage of the abscess. Echocardiogram was done for gram- positive bacteremia, but did not show endocarditis. Carotid Doppler showed 60- 79% stenosis in the left internal carotid artery and patient requires outpatient vascular surgery follow-up. In the interim, patient continued to have worsening leukocytosis, ESR and CRP. Fourth set of blood cultures are currently pending, which have been drawn after the drainage of spinal abscess. Patient continues to have back pain, which is now involving upper back and she also has significant left upper extremity weakness. MRI of cervical spine was obtained, which showed possible epidural abscess in lower cervical and upper thoracic spine. Given her persistent leukocytosis, positive blood cultures and the possibility of requiring extensive spinal surgery, after discussing with spine surgeon, it has been decided for the patient to be transferred for higher level of care. Case has been discussed with transfer center at [facility] in [place], and patient has been accepted for transfer. She is medically stable at this time. - Time Spent with Patient Total time spent providing and/or coordinating discharge services: Greater than 30 minutes (50 min) - Constitutional Vitals: Temp Pulse Resp BP Pulse Ox 99.3 F 112 16 146/82 95 04/14/16 11:55 04/14/16 11:55 04/14/16 11:55 04/14/16 11:55 04/14/16 11:55 General appearance: Present: A&O X 3, obese, answers questions appropriately - Respiratory Respiratory exam: Present: CTAB. Absent: accessory muscle use, rales, rhonchi, wheezes - Cardiovascular Cardiovascular exam: Present: RRR, +S1, +S2, tachycardia. Absent: diastolic murmur, gallop, rubs, systolic murmur - VTE Documentation of Mechanical Device: Intermittent pneumatic compression device
[2016-04-14 20:22] VITALS: BP 150/80
[2016-04-14] MEDS: Melatonin 3 MG TABLET PO SCH (20:25)
[2016-04-14] MEDS: ALPRAZolam 1 MG TABLET PO PRN (20:27)
[2016-04-14 22:59] LABS: Enterococcus by PCR Not Detected (Not Detect); blaKPC Carbapenem-Resist Gene Not Detected (Not Detect); mecA Methicillin-Resist Gene Not Detected (Not Detect); vanA/B Vancomycin-Resist Genes Not Detected (Not Detect)
[2016-04-14 23:00] LABS: Acinetobacter baumannii by PCR Not Detected (Not Detect); Candida albicans by PCR Not Detected (Not Detect); Candida glabrata by PCR Not Detected (Not Detect); Candida krusei by PCR Not Detected (Not Detect); Candida parapsilosis by PCR Not Detected (Not Detect); Candida tropicalis by PCR Not Detected (Not Detect); Escherichia coli by PCR Not Detected (Not Detect); Klebsiella oxytoca by PCR Not Detected (Not Detect); Klebsiella pneumoniae by PCR Not Detected (Not Detect); Pseudomonas aeruginosa by PCR Not Detected (Not Detect); Serratia marcescens by PCR Not Detected (Not Detect); Staphylococcus aureus by PCR ***DETECTED*** (Not Detect); Streptococcus agalactiae(B)PCR Not Detected (Not Detect); Streptococcus by PCR Not Detected (Not Detect); Streptococcus pneumoniae PCR Not Detected (Not Detect); Streptococcus pyogenes (A) PCR Not Detected (Not Detect)
[2016-04-14 23:00] LABS: Acinetobacter baumannii by PCR Not Detected (Not Detect); Candida albicans by PCR Not Detected (Not Detect); Candida glabrata by PCR Not Detected (Not Detect); Candida krusei by PCR Not Detected (Not Detect); Candida parapsilosis by PCR Not Detected (Not Detect); Candida tropicalis by PCR Not Detected (Not Detect); Enterococcus by PCR Not Detected (Not Detect); Escherichia coli by PCR Not Detected (Not Detect); Klebsiella oxytoca by PCR Not Detected (Not Detect); Klebsiella pneumoniae by PCR Not Detected (Not Detect); Pseudomonas aeruginosa by PCR Not Detected (Not Detect); Serratia marcescens by PCR Not Detected (Not Detect); Staphylococcus aureus by PCR ***DETECTED*** (Not Detect); Streptococcus agalactiae(B)PCR Not Detected (Not Detect); Streptococcus by PCR Not Detected (Not Detect); Streptococcus pneumoniae PCR Not Detected (Not Detect); Streptococcus pyogenes (A) PCR Not Detected (Not Detect); blaKPC Carbapenem-Resist Gene Not Detected (Not Detect); mecA Methicillin-Resist Gene Not Detected (Not Detect); vanA/B Vancomycin-Resist Genes Not Detected (Not Detect)
== END 2016-04-14 23:15 | disposition critical access hospital (66) | DRG 28 ==
LOC: 3NENU 19:40 → EMEROO 19:40 → 3NENU 23:13 → SUATTDRO 04-08 04:19
PROVIDERS: ADMIT Internal Medicine; ATTEND Internal Medicine